=== PATIENT | female | born 1950 | race Caucasian/White ===

== ENCOUNTER 2018-12-07 13:43 | Observation (INO) | payer MEDICARE, SELFPAY ==
[2018-12-07] VITALS (10 sets, daily range): BP systolic 100–167; BP diastolic 59–74; PULSE 61–80; RESP 13–22; TEMP 36.6–36.7; O2SAT 95–99; BMI 25.6; BMI 24.8
--- NOTE | 2018-12-07 14:10 | EKG12_ITS ---
Test Reason : Blood Pressure : / mmHG Vent. Rate : 057 BPM Atrial Rate : 057 BPM P-R Int : 150 ms QRS Dur : 094 ms QT Int : 456 ms P-R-T Axes : 059 026 023 degrees QTc Int : 443 ms Sinus bradycardia with occasional Premature ventricular complexes Otherwise normal ECG Confirmed by BIJAN GAMBINO, DOROTHY ([id number]), index editor LALIT CARDENAS ([id number]) on 12/09/2018 9:13:46 AM Referred By: GEMA Confirmed By:DOROTHY THAKKAR MD
--- NOTE | 2018-12-07 14:10 | RAD_ITS ---
STUDY: X-RAY CHEST REASON FOR EXAM: Female, 68 years old. Syncope. TECHNIQUE: Frontal and lateral views of the chest COMPARISON: 03/25/2015 FINDINGS: The lungs are clear. There are no pleural effusions. There is no pneumothorax. The heart is normal in size. The visualized osseous structures are within normal limits. RAD/Chest PA and Lateral IMPRESSION: No acute thoracic pathology. Electronically Signed: Keanu Dias, at 15:31 EDT Tel , Service support ,
[2018-12-07 14:56] LABS: Absolute Lymphocyte Count 1.39 X10^3/ul (0.83-4.51); Absolute Neutrophil Count 4.3 X10^3/uL (2.0-7.7); Basophil# 0.04 X10^3/uL; Basophil% 0.6 % (0-1); Eosinophil# 0.07 X10^3/uL; Eosinophils% 1.1 % (0-5); Hematocrit 40.4 % (37-47); Hemoglobin 13.5 g/dl (12.0-15.0); Lymphocyte # 1.39 X10^3/ul (4.0); Lymphocyte % 22.2 % (19-41); Mean Corp Hgb Conc 33.4 g/gl (32-36); Mean Corpuscular Volume 83.6 fL (81-99); Monocyte# 0.44 X10^3/uL; Neutrophil % 68.9 % (47-70); Platelet Count 203 K/mm3 (150-450); RBC Distribution Width CV 13.3 % (11.6-14.6); RBC Distribution Width SD 40.4 fl (35.1-43.9); Red Blood Count 4.83 M/mm3 (4.2-5.4); White Blood Count 6.3 K/mm3 (4.4-11.0)
[2018-12-07 14:58] LABS: POSITIVE COUNT NO; POSITIVE DIFFERENTIAL NO; POSITIVE MORPHOLOGY NO
[2018-12-07 15:10] LABS: Anion Gap 5 (5-15); BUN 22 mg/dL (7-18); BUN/Creat Ratio 18.5 RATIO (10-20); Chloride 103 mmol/L (98-107); Creatinine, Serum 1.19 mg/dL (0.55-1.02); EST Glomerular Filtration Rate 48 mL/min (>60); Est Glom Filt Rate - Afr Amer 58 mL/min (>60); Estimated Creatinine Clearance 34.79 ml/min; Glucose 86 mg/dL (74-106); Potassium 3.8 mmol/L (3.5-5.1); Sodium Level 138 mmol/L (136-145)
--- NOTE | 2018-12-07 15:29 | ED.DCSUM_ITS ---
- ER Visit Summary Date of Service: 12/07/18 Chief Complaint: Syncope History of Present Illness: The patient is a 68 F who states that today after lunch she was at work doing her normal job. She states that she suddenly got lightheaded dizzy nauseous and sweaty. She had a discomfort in her epigastrium and lower chest that felt like something dropped. She states that she passed out about 3 times and had vomiting. Patient states that this is been happening over the past month. Prior to this in 2014 the patient had syncope that was felt to be vasovagal mediated but also had ventricular tachycardia on Holter monitor. This led to heart catheterization stress test EP consult and eventually right coronary artery PCI. She has been fine for approximately 4 years. The patient continues to smoke. She states she feels fine now. Physical Examination: Afebrile vital signs are stable Gen: Well-nourished well-developed Head: Normocephalic atraumatic Eyes: Perrl EOMI ENT: TMs clear no rhinorrhea moist mucous membranes Neck: Supple no lymphadenopathy no JVD nontender CVS: Regular rate rhythm no murmurs normal S1-S2 Respiratory: No distress clear to auscultation bilaterally chest nontender Abdomen: Soft nontender nondistended normal bowel sounds no masses Back: Nontender Extremity: Nontender no edema Skin: Normal color no rash Neuro: alert orientated ?3 CN II-XII intact normal strength sensation reflexes gait cerebellar Psych: Normal affect normal mood Test Results: EKG shows a normal sinus rhythm at a rate of 57 with a PVC. CBC BMP and troponin were negative. Emergency Department Course and Treatment: Patient has had no events on the monitor other than PVCs. Because of the patient's history of ventricular tachycardia at this abnormal sensation in her chest would recommend admission for evaluation. Patient agrees with plan. Impression: 1. Syncope This note was generated with [employer] dictation software. It may contain incorrect words, spelling, and punctuation that were not noted in review of the chart prior to signing ED Disposition - Plan for ED Patient: Referrals: Josiah Carlos MD [Primary Care Provider] -
--- NOTE | 2018-12-07 15:55 | NURSING ---
PCU OBS PAINTSIL SYNCOPE
--- NOTE | 2018-12-07 15:57 | HP.PCM_ITS ---
Problem List (1) PVC (premature ventricular contraction) Status: Acute (2) Dyslipidemia Status: Chronic (3) Syncope Status: Acute (4) Benign essential hypertension Status: Chronic History of Present Illness The patient is a 68 year old F [] Past Medical History Past Medical History (Chronic Problems): Chronic Problems Tobacco abuse (Chronic) Smoker (Chronic) 1 ppd Dyslipidemia (Chronic) Benign essential hypertension (Chronic) Allergies tetracycline Allergy (Verified 05/16/15 07:01) Unknown Home Medications: Ambulatory Orders Medication Instructions Recorded Amlodipine [Norvasc] 5 mg PO DAILY 05/06/15 Lisinopril [Zestril] 40 mg PO DAILY 05/06/15 Pravastatin [Pravachol] 20 mg PO DAILY 05/06/15 Aspirin [Aspirin, Baby] 81 mg PO DAILY@0800 05/16/15 Metoprolol Tartrate [Lopressor 25 mg PO BID 05/16/15 (beta yuan)] Nicotine [Nicotine Patch] 1 each TD DAILY 05/16/15 buPROPion SR [Wellbutrin SR (150mg 150 mg PO DAILY 12/07/18 tablets)] Smoking Status: Current every day smoker - *Family History Maternal History Items: Stroke - Physical Exam Vital Signs Temp Pulse Resp BP Pulse Ox 97.8 F 61 17 116/60 99 12/07/18 13:44 12/07/18 15:04 12/07/18 15:04 12/07/18 15:04 12/07/18 15:04 Oxygen Delivery Method Room Air Weight: 63.503 kg Body Mass Index (BMI) 25.6 Laboratory Tests Past 24 Hrs 12/07/18 12/07/18 14:47 14:47 WBC 6.3 RBC 4.83 Hgb 13.5 Hct 40.4 MCV 83.6 MCH 28.0 MCHC 33.4 RDW 13.3 RDW Differential 40.4 Plt Count 203 MPV 10.0 Immature Gran % (Auto) 0.200 Neut % (Auto) 68.9 Lymph % (Auto) 22.2 [place] % (Auto) 7.0 Eos % (Auto) 1.1 Baso % (Auto) 0.6 Absolute Neuts (auto) 4.3 Absolute Lymphs (auto) 1.39 Total Counted Not Reportable Sodium 138 Potassium 3.8 Chloride 103 Carbon Dioxide 30.0 Anion Gap 5 BUN 22 H Creatinine 1.19 H Estim Creat Clear Calc 34.79 Est GFR (MDRD) Af Amer 58 L Est GFR (MDRD) Non-Af 48 L BUN/Creatinine Ratio 18.5 Glucose 86 Calcium 9.0 Troponin I < 0.015 Assessment/Plan All Active Problems PVC (premature ventricular contraction) (Acute) Shortness of breath (Acute) Syncope (Acute) Code Visit OBSV E&M: 78796 Initial observation care L3
--- NOTE | 2018-12-07 16:06 | NURSING ---
PCU RECURRENT SYNCOPE PAINTSIL
--- NOTE | 2018-12-07 16:26 | CASEMGMT ---
RN CM Assessment Introduced role of RN CM to patient and son at bedside.? Patient is alert, oriented and able?to participate in RN CM Assessment. ?Care providers, pharmacy, and demographics verified. Presentation: Lightheaded, dizzy, nausea, sweaty, Epigastric & Lower Chest discomfort, States passed out about 3 times and had vomiting. Admit Dx: Recurrent Syncope Re-Admit: No Barriers/Issues: None PCP: Josiah Carlos Specialists: None Preferred Pharmacy: [facility] Insurance: [facility] Rx Benefit:?Yes LNOK: Dtr Susan Szymanski LW/HPOA: No, Declines offered Information. States her children know already. Living Arrangements:? Lives with her Dtr Susan in a SS Home, 4-5 steps to enter the home. ADL?s: Independent with ambulation and ADL's. Still works [employer]. Transportation: Patient drives, Boyfriend Christiano Morelos to Transport on [place]. DME: None HHC: None SNF: None Goal: Home and back to working. DC PLAN: Home with no anticipated needs identified at this time. AFSANEH Del Angel
--- NOTE | 2018-12-07 17:06 | ECHOD_ITS ---
Reason For Study: Syncope Procedure This was a 2D Doppler, Color Flow transthoracic echocardiogram. Exam performed portable in patient room. Left Ventricle Normal size and thickness. The estimated ejection fraction is 75 %. No regional wall motion abnormalities noted. Right Ventricle Normal size and thickness. Normal systolic function. Atria Normal left atrium. Normal right atrium. Normal atrial septum. Mitral Valve The mitral valve is structurally normal. No prolapse or stenosis seen. Trivial mitral valve insufficiency. Tricuspid Valve Normal tricuspid valve. Mild (1+) tricuspid valve insufficiency. Right ventricular systolic pressure estimated to be 37 mmHg. Mild pulmonary hypertension. Aortic Valve Trisinus/trileaflet aortic valve. Mild focal aortic valve thickening. Trivial aortic valve insufficiency. Pulmonic Valve Normal pulmonic valve. Great Vessels Normal aortic root. Normal arch. Normal inferior vena cava. Inferior vena cava collapse with sniff. Pericardium/Pleural No pericardial effusion. MMode/2D Measurements & Calculations LVIDd: 4.6 cm IVSd: 1.2 cm LVOT diam: 2.0 cm LVIDs: 2.7 cm LVPWd: 1.2 cm LVOT area: 3.1 cm2 RVDd: 2.8 cm FS: 42.2 % ACS: 1.3 cm LAV(MOD-bp): 52.3 ml LA A4 area: 19.5 cm2 LA dimension: 3.3 cm LAV(MOD-bp) Indexed: 32.3 ml/m2 LAV(MOD-sp2): 47.2 ml LAV(MOD-sp4): 56.2 ml RA A4 area: 14.0 cm2 Time Measurements MV dec time: 0.19 sec Doppler Measurements & Calculations MV E max [place]: 84.6 cm/sec Lat Peak E' [place]: 7.6 cm/sec Med Peak E' [place]: 7.3 cm/sec MV A max [place]: 70.2 cm/sec E/E' lat: 11.2 E/E' med: 11.6 MV E/A: 1.2 MV V2 max: 98.9 cm/sec MV P1/2t max [place]in: 98.9 cm/sec Ao V2 max: 266.9 cm/sec MV max P.9 mmHg MV P1/2t: 71.7 msec Ao max P.5 mmHg MV V2 mean: 41.6 cm/sec MV dec slope: 403.7 cm/sec2 Ao V2 mean: 172.6 cm/sec MV mean P.92 mmHg Ao mean P.6 mmHg MV V2 VTI: 31.4 cm MVA(P1/2t): 3.1 cm2 Ao V2 VTI: 61.1 cm MVA(VTI): 2.7 cm2 TANIA(I,D): 1.4 cm2 TANIA(V,D): 1.4 cm2 AI max austin: 472.7 cm/sec LV V1 max: 119.4 cm/sec MR max austin: 543.5 cm/sec AI max P.4 mmHg LV V1 max P.7 mmHg MR max P.2 mmHg LV V1 mean P.0 mmHg MR mean austin: 451.7 cm/sec AI dec slope: 238.4 cm/sec2 LV V1 mean: 81.2 cm/sec MR mean P.3 mmHg AI P1/2t: 580.7 msec LV V1 VTI: 27.3 cm MR VTI: 216.5 cm SV(LVOT): 84.3 ml PA V2 max: 70.2 cm/sec TR max austin: 282.7 cm/sec TR max P.0 mmHg Interpretation Summary The estimated ejection fraction is 75 %. Trivial mitral valve insufficiency. Mild (1+) tricuspid valve insufficiency. Right ventricular systolic pressure estimated to be 37 mmHg. Mild pulmonary hypertension. Trivial aortic valve insufficiency. Compared to echo report dated 05/07/2015, no appreciable changes noted. MR appears to be better on this study. Ordering Physician: Mary Lozano Referring Physician: Josiah Carlos M.D. Performed By: Addi Colindres RCS
--- NOTE | 2018-12-07 17:34 | PCM.HP.STD ---
<Arminda Fournier - Last Filed: 12/07/18 18:08> Problem List (1) Tobacco abuse Status: Chronic (2) PVC (premature ventricular contraction) Status: Chronic (3) Smoker Status: Chronic Comment: 1 ppd (4) Dyslipidemia Status: Chronic (5) Syncope Status: Acute (6) Benign essential hypertension Status: Chronic History of Present Illness Date of Admission: 12/07/18 Chief Complaint: Syncope. The patient is a 68 year old F who presents the emergency room due to syncope. Patient reports over the past month she has had frequent episodes of syncope, a few times per week. She reports today she had multiple episodes which then brought her into the emergency room. She states she has a dark feeling prior to passing out. She has had similar episodes in 2014 where she was admitted and later transferred to [facility] where she had a stent placed. She has not followed up with cardiology since that time and reports she has not had any further issues up until the past month. She has a past medical history of CAD status post PCI to RCA, paroxysmal nonsustained ventricular tachycardia, hypertension, depression/anxiety, tobacco dependence. Past Medical History Past Medical History (Chronic Problems): Chronic Problems Tobacco abuse (Chronic) PVC (premature ventricular contraction) (Chronic) Smoker (Chronic) 1 ppd Dyslipidemia (Chronic) Benign essential hypertension (Chronic) Allergies tetracycline Allergy (Verified 05/16/15 07:01) Unknown Home Medications: Ambulatory Orders Medication Instructions Recorded Aspirin [Aspirin, Baby] 81 mg PO DAILY@0800 05/16/15 Metoprolol Tartrate [Lopressor 25 mg PO BID 05/16/15 (beta yuan)] Amlodipine Besylate 10 mg PO DAILY 12/07/18 Lisinopril 40 mg PO DAILY 12/07/18 buPROPion SR [Wellbutrin SR (150mg 150 mg PO DAILY 12/07/18 tablets)] hydroCHLOROthiazide 12.5 mg PO DAILY 12/07/18 [Hydrochlorothiazide] Surgical History: appendectomy, - - Tubal ligation, complete hysterectomy, bladder reconstruction, right breast cyst removal Psychiatric History: No pertinent psych hx COMMUNITY HEALTH EDUCATOR History: No pertinent COMMUNITY HEALTH EDUCATOR history Smoking Status: Current every day smoker Tobacco Use: Cigarettes Alcohol: None Drugs: None - *Family History Maternal History Items: - - from MVA. Paternal History Items: - - Bladder cancer. Review of Systems Constitutional: Denies: Chills, Fever, Weight Change HEENT: Denies: Head Aches, Sinus Congestion, Sinus Drainage Cardiovascular: Reports: Syncope. Denies: Chest Pain, Edema, Palpitations Respiratory: Denies: Cough, Shortness of breath at rest, Sputum production Gastrointestinal: Denies: Abdominal Pain, Nausea, Vomiting Genitourinary: Denies: Dysuria Musculoskeletal: Denies: Joint Pain, Joint Tenderness Skin: Denies: Rash, Wounds Neurological: Denies: Numbness, Tingling, Focal weakness Psychiatric: Denies: Anxiety, Depression, Homicidal Ideations, Suicidal Ideations Hematologic/ Lymphatic: Denies: Easy Bruising, Easy Bleeding VTE Information - Inpt Only VTE Present on Admission: No VTE Mechan Device Prophylaxis: None VTE Pharm Prophylaxis ordered?: Yes - Physical Exam General: Alert, Oriented x3, Cooperative HEENT: Atraumatic, PERRLA, EOMI, Normocephalic Neck: Supple, No JVD, Negative Carotid Bruits Lungs: Clear to auscultation, Normal air movement Cardiovascular: Regular rate, Regular Rhythm, Normal S1, Normal S2, No murmurs Abdomen: Bowel Sounds Present, Soft, Non Tender, Non-Distended Extremities: No clubbing, No cyanosis, No edema, Capillary Refill Less than 3 Seconds Skin: No rashes, No breakdown Musculoskeletal: No Tenderness to Palpation of Joints or Extremities Neurological: Cranial nerves II-XII grossly intact, Neuro grossly intact Psych/Mental Status: Normal Affect, Appropriate Vital Signs Temp Pulse Resp BP Pulse Ox 98.1 F 63 22 H 143/73 H 96 12/07/18 17:02 12/07/18 17:31 12/07/18 17:02 12/07/18 17:31 12/07/18 17:02 Oxygen Delivery Method Room Air Weight: 135 lb 12.8 oz Body Mass Index (BMI) 24.8 Orthostatic Vital Signs Start: 12/07/18 17:31 Freq: q24h Status: Active Protocol: Activity Type Activity Date Activity User E-Sign Co-Sign Detail Recorded Client Recorded Date Recorded By Document 12/07/18 17:31 NEIL [id number] 12/07/18 17:34 NEIL 12/07/18 17:31 Orthostatic Vitals Standing -Blood Pressure (90/60-120/80) 128/62 H -Extremity Use Left Arm -Pulse Rate (60-100) 74 Sitting -Blood Pressure (90/60-120/80) 131/68 H -Extremity Use Left Arm -Pulse Rate (60-100) 67 Lying -Blood Pressure (90/60-120/80) 143/73 H -Pulse Rate (60-100) 63 Laboratory Tests Past 24 Hrs 12/07/18 12/07/18 14:47 14:47 WBC 6.3 RBC 4.83 Hgb 13.5 Hct 40.4 MCV 83.6 MCH 28.0 MCHC 33.4 RDW 13.3 RDW Differential 40.4 Plt Count 203 MPV 10.0 Immature Gran % (Auto) 0.200 Neut % (Auto) 68.9 Lymph % (Auto) 22.2 [place] % (Auto) 7.0 Eos % (Auto) 1.1 Baso % (Auto) 0.6 Absolute Neuts (auto) 4.3 Absolute Lymphs (auto) 1.39 Total Counted Not Reportable Sodium 138 Potassium 3.8 Chloride 103 Carbon Dioxide 30.0 Anion Gap 5 BUN 22 H Creatinine 1.19 H Estim Creat Clear Calc 34.79 Est GFR (MDRD) Af Amer 58 L Est GFR (MDRD) Non-Af 48 L BUN/Creatinine Ratio 18.5 Glucose 86 Calcium 9.0 Troponin I < 0.015 Assessment/Plan All Active Problems Syncope (Acute) 1. Recurrent syncope-history of arrhythmia/CAD. Cardiology consulted. EKG on admission with PVCs. Trend enzymes. Obtain echocardiogram. 2. Orthostatic hypotension, suspect secondary to hypovolemia mild elevated creatinine,-IV fluids, repeat in a.m. 3. CAD status post PCI to RCA-continue aspirin, metoprolol. 4. History of paroxysmal nonsustained ventricular tachycardia-monitor telemetry. 5. Hypertension-stable, continue amlodipine, HCTZ, lisinopril, metoprolol. 6. Depression/anxiety-continue Wellbutrin regimen. 7. Tobacco dependence-encouraged smoking cessation. Nicotine replacement patch. DVT prophylaxis-Lovenox subcu This patient was seen by KHANG Sanz under the supervision of Dr. Lozano. <Mary Lozano - Last Filed: 12/07/18 19:19> Problem List (1) PVC (premature ventricular contraction) Status: Chronic (2) Dyslipidemia Status: Chronic (3) Syncope Status: Acute (4) Benign essential hypertension Status: Chronic History of Present Illness The patient is a 68 year old F [] Past Medical History Allergies tetracycline Allergy (Verified 05/16/15 07:01) Unknown - Physical Exam Vital Signs Temp Pulse Resp BP Pulse Ox 98.1 F 63 22 H 143/73 H 96 12/07/18 17:02 12/07/18 17:31 12/07/18 17:02 12/07/18 17:31 12/07/18 17:02 Oxygen Delivery Method Room Air Weight: 61.598 kg Body Mass Index (BMI) 24.8 Orthostatic Vital Signs Start: 12/07/18 17:31 Freq: q24h Status: Active Protocol: Activity Type Activity Date Activity User E-Sign Co-Sign Detail Recorded Client Recorded Date Recorded By Document 12/07/18 17:31 B [id number] 12/07/18 17:34 ZZB 12/07/18 17:31 Orthostatic Vitals Standing -Blood Pressure (90/60-120/80) 128/62 H -Extremity Use Left Arm -Pulse Rate (60-100) 74 Sitting -Blood Pressure (90/60-120/80) 131/68 H -Extremity Use Left Arm -Pulse Rate (60-100) 67 Lying -Blood Pressure (90/60-120/80) 143/73 H -Pulse Rate (60-100) 63 Intake and Output for Last 24 Hours 12/05/18 12/06/18 12/07/18 23:59 23:59 23:59 Intake Total 240 / 240 Balance 240 / 240 Laboratory Tests Past 24 Hrs 12/07/18 12/07/18 12/07/18 14:47 14:47 17:55 WBC 6.3 RBC 4.83 Hgb 13.5 Hct 40.4 MCV 83.6 MCH 28.0 MCHC 33.4 RDW 13.3 RDW Differential 40.4 Plt Count 203 MPV 10.0 Immature Gran % (Auto) 0.200 Neut % (Auto) 68.9 Lymph % (Auto) 22.2 [place] % (Auto) 7.0 Eos % (Auto) 1.1 Baso % (Auto) 0.6 Absolute Neuts (auto) 4.3 Absolute Lymphs (auto) 1.39 Total Counted Not Reportable Sodium 138 Potassium 3.8 Chloride 103 Carbon Dioxide 30.0 Anion Gap 5 BUN 22 H Creatinine 1.19 H Estim Creat Clear Calc 34.79 Est GFR (MDRD) Af Amer 58 L Est GFR (MDRD) Non-Af 48 L BUN/Creatinine Ratio 18.5 Glucose 86 Calcium 9.0 Troponin I < 0.015 < 0.015 Assessment/Plan This patient was seen in conjunction with Arminda Fournier NP. I have independently interviewed and examined the patient and reviewed pertinent historical, laboratory, and other data. Please refer to her note for patient's presentation, findings, and recommendations. 68-year-old female with past medical history of CAD status post stent, history of arrhythmias(ventricular tachycardia), last saw Dr. Coley in 2014. Patient states that she was referred to [facility] and subsequently got a stent and since then did not get any symptoms and stopped to follow-up with Dr. Coley.Patient admits to having recurrent feeling of passing out ongoing every week for the past 1 month. She works at [employer] and was sitting down helping to sort out when she was said to have passed out. She woke up with a few seconds later. Denied any chest pain or dizziness or palpitations or incontinence of urine or stool or biting of tongue. ROS essentially negative except for HPI PMHx: As above in HPI PSHx: History of tubal ligation, complete hysterectomy, bladder reconstruction, right breast cyst removal FHX: Badder cancer in his father SHX: Smoker, smokes about 1 pack of cigarettes a day, eyes any use of alcohol or illicit drugs Vitals are stable -orthostatic vitals positive Physical Exam: Gen: Appears comfortable not pale, not jaundiced, alert oriented x3 CVS:HS I +II, regular, no murmurs RESP: Color clear to auscultation GI: Bowel sounds present and normal, soft, nontender, no palpable organs EXT:No edema LABS: CBC is unremarkable, BMP shows slight elevation in BUN and creatinine, troponins x2 is negative, EKG shows normal sinus rhythm, occasional PVCs ASSESSMENT: 1. Recurrent syncope likely secondary to arrhythmias/orthostatic hypotension 2. CAD status post stent -2 records from [facility] 3. Orthostatic hypotension secondary to dehydration 4. History of paroxysmal nonsustained V. tach 5. Hypertension, controlled 6. Anxiety/depression 7. Nicotine dependence Meds reviewed Plan: We will continue to monitor on telemetry 2D echo Check magnesium Cardiology consult Code Visit Inpatient E&M: 10915 Init Hosp L3
--- NOTE | 2018-12-07 17:39 | HP.PCM_ITS ---
<Arminda Fournier - Last Filed: 12/07/18 18:08> Problem List (1) Tobacco abuse Status: Chronic (2) PVC (premature ventricular contraction) Status: Chronic (3) Smoker Status: Chronic Comment: 1 ppd (4) Dyslipidemia Status: Chronic (5) Syncope Status: Acute (6) Benign essential hypertension Status: Chronic History of Present Illness Date of Admission: 12/07/18 Chief Complaint: Syncope. The patient is a 68 year old F who presents the emergency room due to syncope. Patient reports over the past month she has had frequent episodes of syncope, a few times per week. She reports today she had multiple episodes which then brought her into the emergency room. She states she has a dark feeling prior to passing out. She has had similar episodes in 2014 where she was admitted and later transferred to [facility] where she had a stent placed. She has not followed up with cardiology since that time and reports she has not had any further issues up until the past month. She has a past medical history of CAD status post PCI to RCA, paroxysmal nonsustained ventricular tachycardia, hypertension, depression/anxiety, tobacco dependence. Past Medical History Past Medical History (Chronic Problems): Chronic Problems Tobacco abuse (Chronic) PVC (premature ventricular contraction) (Chronic) Smoker (Chronic) 1 ppd Dyslipidemia (Chronic) Benign essential hypertension (Chronic) Allergies tetracycline Allergy (Verified 05/16/15 07:01) Unknown Home Medications: Ambulatory Orders Medication Instructions Recorded Aspirin [Aspirin, Baby] 81 mg PO DAILY@0800 05/16/15 Metoprolol Tartrate [Lopressor 25 mg PO BID 05/16/15 (beta yuan)] Amlodipine Besylate 10 mg PO DAILY 12/07/18 Lisinopril 40 mg PO DAILY 12/07/18 buPROPion SR [Wellbutrin SR (150mg 150 mg PO DAILY 12/07/18 tablets)] hydroCHLOROthiazide 12.5 mg PO DAILY 12/07/18 [Hydrochlorothiazide] Surgical History: appendectomy, - - Tubal ligation, complete hysterectomy, bladder reconstruction, right breast cyst removal Psychiatric History: No pertinent psych hx 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 Paternal History Items: - - Bladder cancer. Review of Systems Constitutional: Denies: Chills, Fever, Weight Change HEENT: Denies: Head Aches, Sinus Congestion, Sinus Drainage Cardiovascular: Reports: Syncope. Denies: Chest Pain, Edema, Palpitations Respiratory: Denies: Cough, Shortness of breath at rest, Sputum production Gastrointestinal: Denies: Abdominal Pain, Nausea, Vomiting Genitourinary: Denies: Dysuria Musculoskeletal: Denies: Joint Pain, Joint Tenderness Skin: Denies: Rash, Wounds Neurological: Denies: Numbness, Tingling, Focal weakness Psychiatric: Denies: Anxiety, Depression, Homicidal Ideations, Suicidal Ideations Hematologic/ Lymphatic: Denies: Easy Bruising, Easy Bleeding VTE Information - Inpt Only VTE Present on Admission: No VTE Mechan Device Prophylaxis: None VTE Pharm Prophylaxis ordered?: Yes - Physical Exam General: Alert, Oriented x3, Cooperative HEENT: Atraumatic, PERRLA, EOMI, Normocephalic Neck: Supple, No JVD, Negative Carotid Bruits Lungs: Clear to auscultation, Normal air movement Cardiovascular: Regular rate, Regular Rhythm, Normal S1, Normal S2, No murmurs Abdomen: Bowel Sounds Present, Soft, Non Tender, Non-Distended Extremities: No clubbing, No cyanosis, No edema, Capillary Refill Less than 3 Seconds Skin: No rashes, No breakdown Musculoskeletal: No Tenderness to Palpation of Joints or Extremities Neurological: Cranial nerves II-XII grossly intact, Neuro grossly intact Psych/Mental Status: Normal Affect, Appropriate Vital Signs Temp Pulse Resp BP Pulse Ox 98.1 F 63 22 H 143/73 H 96 12/07/18 17:02 12/07/18 17:31 12/07/18 17:02 12/07/18 17:31 12/07/18 17:02 Oxygen Delivery Method Room Air Weight: 135 lb 12.8 oz Body Mass Index (BMI) 24.8 Orthostatic Vital Signs Start: 12/07/18 17:31 Freq: q24h Status: Active Protocol: Activity Type Activity Date Activity User E-Sign Co-Sign Detail Recorded Client Recorded Date Recorded By Document 12/07/18 17:31 NEIL [id number] 12/07/18 17:34 NEIL 12/07/18 17:31 Orthostatic Vitals Standing -Blood Pressure (90/60-120/80) 128/62 H -Extremity Use Left Arm -Pulse Rate (60-100) 74 Sitting -Blood Pressure (90/60-120/80) 131/68 H -Extremity Use Left Arm -Pulse Rate (60-100) 67 Lying -Blood Pressure (90/60-120/80) 143/73 H -Pulse Rate (60-100) 63 Laboratory Tests Past 24 Hrs 12/07/18 12/07/18 14:47 14:47 WBC 6.3 RBC 4.83 Hgb 13.5 Hct 40.4 MCV 83.6 MCH 28.0 MCHC 33.4 RDW 13.3 RDW Differential 40.4 Plt Count 203 MPV 10.0 Immature Gran % (Auto) 0.200 Neut % (Auto) 68.9 Lymph % (Auto) 22.2 [place] % (Auto) 7.0 Eos % (Auto) 1.1 Baso % (Auto) 0.6 Absolute Neuts (auto) 4.3 Absolute Lymphs (auto) 1.39 Total Counted Not Reportable Sodium 138 Potassium 3.8 Chloride 103 Carbon Dioxide 30.0 Anion Gap 5 BUN 22 H Creatinine 1.19 H Estim Creat Clear Calc 34.79 Est GFR (MDRD) Af Amer 58 L Est GFR (MDRD) Non-Af 48 L BUN/Creatinine Ratio 18.5 Glucose 86 Calcium 9.0 Troponin I < 0.015 Assessment/Plan All Active Problems Syncope (Acute) 1. Recurrent syncope-history of arrhythmia/CAD. Cardiology consulted. EKG on admission with PVCs. Trend enzymes. Obtain echocardiogram. 2. Orthostatic hypotension, suspect secondary to hypovolemia mild elevated creatinine,-IV fluids, repeat in a.m. 3. CAD status post PCI to RCA-continue aspirin, metoprolol. 4. History of paroxysmal nonsustained ventricular tachycardia-monitor telemetry. 5. Hypertension-stable, continue amlodipine, HCTZ, lisinopril, metoprolol. 6. Depression/anxiety-continue Wellbutrin regimen. 7. Tobacco dependence-encouraged smoking cessation. Nicotine replacement patch. DVT prophylaxis-Lovenox subcu This patient was seen by KHANG Sanz under the supervision of Dr. Lozano. <Mary Lozano - Last Filed: 12/07/18 19:19> Problem List (1) PVC (premature ventricular contraction) Status: Chronic (2) Dyslipidemia Status: Chronic (3) Syncope Status: Acute (4) Benign essential hypertension Status: Chronic History of Present Illness The patient is a 68 year old F [] Past Medical History Allergies tetracycline Allergy (Verified 05/16/15 07:01) Unknown - Physical Exam Vital Signs Temp Pulse Resp BP Pulse Ox 98.1 F 63 22 H 143/73 H 96 12/07/18 17:02 12/07/18 17:31 12/07/18 17:02 12/07/18 17:31 12/07/18 17:02 Oxygen Delivery Method Room Air Weight: 61.598 kg Body Mass Index (BMI) 24.8 Orthostatic Vital Signs Start: 12/07/18 17:31 Freq: q24h Status: Active Protocol: Activity Type Activity Date Activity User E-Sign Co-Sign Detail Recorded Client Recorded Date Recorded By Document 12/07/18 17:31 B [id number] 12/07/18 17:34 ZZB 12/07/18 17:31 Orthostatic Vitals Standing -Blood Pressure (90/60-120/80) 128/62 H -Extremity Use Left Arm -Pulse Rate (60-100) 74 Sitting -Blood Pressure (90/60-120/80) 131/68 H -Extremity Use Left Arm -Pulse Rate (60-100) 67 Lying -Blood Pressure (90/60-120/80) 143/73 H -Pulse Rate (60-100) 63 Intake and Output for Last 24 Hours 12/05/18 12/06/18 12/07/18 23:59 23:59 23:59 Intake Total 240 / 240 Balance 240 / 240 Laboratory Tests Past 24 Hrs 12/07/18 12/07/18 12/07/18 14:47 14:47 17:55 WBC 6.3 RBC 4.83 Hgb 13.5 Hct 40.4 MCV 83.6 MCH 28.0 MCHC 33.4 RDW 13.3 RDW Differential 40.4 Plt Count 203 MPV 10.0 Immature Gran % (Auto) 0.200 Neut % (Auto) 68.9 Lymph % (Auto) 22.2 [place] % (Auto) 7.0 Eos % (Auto) 1.1 Baso % (Auto) 0.6 Absolute Neuts (auto) 4.3 Absolute Lymphs (auto) 1.39 Total Counted Not Reportable Sodium 138 Potassium 3.8 Chloride 103 Carbon Dioxide 30.0 Anion Gap 5 BUN 22 H Creatinine 1.19 H Estim Creat Clear Calc 34.79 Est GFR (MDRD) Af Amer 58 L Est GFR (MDRD) Non-Af 48 L BUN/Creatinine Ratio 18.5 Glucose 86 Calcium 9.0 Troponin I < 0.015 < 0.015 Assessment/Plan This patient was seen in conjunction with Arminda Fournier NP. I have independently interviewed and examined the patient and reviewed pertinent historical, laboratory, and other data. Please refer to her note for patient's presentation, findings, and recommendations. 68-year-old female with past medical history of CAD status post stent, history of arrhythmias(ventricular tachycardia), last saw Dr. Coley in 2014. Patie nt states that she was referred to [facility] and subsequently got a stent and since then did not get any symptoms and stopped to follow-up with Dr. Coley.Patient admits to having recurrent feeling of passing out ongoing every week for the past 1 month. She works at [employer] and was sitting down helping to sort out when she was said to have passed out. She woke up with a few seconds later. Denied any chest pain or dizziness or palpitations or incontinence of urine or stool or biting of tongue. ROS essentially negative except for HPI PMHx: As above in HPI PSHx: History of tubal ligation, complete hysterectomy, bladder reconstruction, right breast cyst removal FHX: Badder cancer in his father SHX: Smoker, smokes about 1 pack of cigarettes a day, eyes any use of alcohol or illicit drugs Vitals are stable -orthostatic vitals positive Physical Exam: Gen: Appears comfortable not pale, not jaundiced, alert oriented x3 CVS:HS I +II, regular, no murmurs RESP: Color clear to auscultation GI: Bowel sounds present and normal, soft, nontender, no palpable organs EXT:No edema LABS: CBC is unremarkable, BMP shows slight elevation in BUN and creatinine, troponins x2 is negative, EKG shows normal sinus rhythm, occasional PVCs ASSESSMENT: 1. Recurrent syncope likely secondary to arrhythmias/orthostatic hypotension 2. CAD status post stent -[address] [facility] 3. Orthostatic hypotension secondary to dehydration 4. History of paroxysmal nonsustained V. tach 5. Hypertension, controlled 6. Anxiety/depression 7. Nicotine dependence Meds reviewed Plan: We will continue to monitor on telemetry 2D echo Check magnesium Cardiology consult Code Visit Inpatient E&M: [id number] Init Hosp L3
[2018-12-07] MEDS: 0.9% Normal Saline 1,000 ML 125 ML IV (18:49)
[2018-12-07 21:19] LABS: Magnesium 2.2 mg/dL (1.6-2.6)
--- NOTE | 2018-12-07 21:24 | PCM.CONS.C ---
Problem List (1) Syncope Status: Acute (2) PVC (premature ventricular contraction) Status: Chronic (3) CAD (coronary artery disease) Status: Chronic Qualifiers: Coronary Disease-Associated Artery/Lesion type: [place] artery [place]lim [place] vs. transplanted heart: [place] heart Associated angina: without angina Qualified Code(s): I25.10 - Atherosclerotic heart disease of [place] coronary artery without angina pectoris (4) S/P PTCA (percutaneous transluminal coronary angioplasty) Status: Chronic (5) Dyslipidemia Status: Chronic (6) Benign essential hypertension Status: Chronic Reason for Consult Date of Consultation: 12/07/18 History of Present Illness: The patient is a 68 year old white female with a past medical history of near syncope/syncope, ventricular ectopy with PVCs and nonsustained VT, CAD, status post RCA PTCA/JOSÉ MIGUEL, dyslipidemia, and hypertension who presents for evaluation of recurrent near syncope/syncope. She states greater than a month ago she was placed on additional medical therapy with HCTZ based on concerns of lower extremity edema. She does not recall her blood pressure being elevated at the time. She notes over the last month she has had episodes where she has not felt well, felt as if everything dropped out , and she was going to lose consciousness or nearly lost consciousness. She notes that these episodes have been happening weekly and were worse today. She also notes during this timeframe her blood pressure has been lower than usual. During this timeframe she does not recall having any resting or exertional chest discomfort. There is been no episodes of worsening shortness of breath or dyspnea. She notes occasional flutter feeling in her chest. She has had no obvious ongoing lower extremity peripheral pitting edema. She presented to the hospital this day based on the aforementioned concerns. Status post evaluation by internal medicine she was found to have orthostatic positive blood pressures. She was placed in the PCU where she has been receiving IV fluids. She has a history of undergoing cardiovascular evaluation in the past. This evaluation has included noninvasive and invasive studies. On 05/07/2015 she had a transthoracic echocardiogram performed. The left ventricle was normal with an LVEF of 70% with mild concentric LVH with a sigmoid septum with borderline to mild left atrial enlargement and mild diffuse mitral valve thickening with mild to moderate MR and mild TR as well as aortic valve sclerosis/mild aortic valve stenosis with mild AI and an estimated RV systolic pressure of 30 mmHg. She had decreased diastolic compliance. On 05/07/2015 she had a exercise tolerance test/imaging study performed in the way of a pharmacologic stress nuclear imaging study. She had normal myocardial perfusion at that time. She is also undergone previous evaluation on 05/16/2015 based upon recurrent concerns with a diagnostic cardiac catheterization. Based upon the report the left ventricle was normal with an LVEF of 70%, the left main coronary artery had 10-25% stenosis, the LAD had proximal minimal luminal irregularities, the LCx was a small to moderate nondominant vessel with proximal minimal luminal irregularities, the RCA was a large dominant vessel with proximal 25% eccentric appearing stenosis with mid 75% eccentric appearing stenosis followed by 50% eccentric appearing stenosis, and the mitral valve had mild MR which was partially catheter/PVC induced. She subsequently underwent further evaluation and care in [facility]. There she subsequently received RCA PTCA/JOSÉ MIGUEL. She has also had ambulatory monitoring performed in the past. Based upon report from 06/07/2015 she had a 30-day event monitor which demonstrated sinus bradycardia arrhythmia with no PACs, PVCs, a 9 beat episode appearing compatible with ventricular tachycardia, and no symptoms. It has been noted that while at [facility] she was evaluated by EP in consultation. Other than her noninvasive studies performed and her subsequent evaluation care for coronary artery disease, and medical management, no further EP evaluation was recommended at that time. In March 2017 the patient had a 24-hour Holter monitor performed. At that time she was in sinus rhythm with rare PVCs no ventricular runs and rare PACs with one 5 beat atrial run appearing compatible with an ectopic atrial tachycardia. No symptoms were reported. Her last outpatient cardiovascular follow-up visit appears to been in March 2017. She states she was feeling well and did not return for additional evaluation or care. She states she has been following with her primary care physician. She has been undergoing cardiac enzymes which have been negative. Her cardiac telemetry has demonstrated sinus rhythm with occasional PVCs. Her ECG demonstrated sinus bradycardia with occasional PVCs. Her chest x-ray demonstrated no acute findings. [] Past Medical History Allergies/Adverse Reactions: Allergies tetracycline Allergy (Verified 05/16/15 07:01) Unknown Home Medications: Ambulatory Orders Medication Instructions Recorded Aspirin [Aspirin, Baby] 81 mg PO DAILY@0800 05/16/15 Metoprolol Tartrate [Lopressor 25 mg PO BID 05/16/15 (beta yuan)] Amlodipine Besylate 10 mg PO DAILY 12/07/18 Lisinopril 40 mg PO DAILY 12/07/18 buPROPion SR [Wellbutrin SR (150mg 150 mg PO DAILY 12/07/18 tablets)] hydroCHLOROthiazide 12.5 mg PO DAILY 12/07/18 [Hydrochlorothiazide] Past Medical History (Chronic Problems): Chronic Problems CAD (coronary artery disease) (Chronic) S/P PTCA (percutaneous transluminal coronary angioplasty) (Chronic) Tobacco abuse (Chronic) PVC (premature ventricular contraction) (Chronic) Smoker (Chronic) 1 ppd Dyslipidemia (Chronic) Benign essential hypertension (Chronic) Surgical History: angioplasty, appendectomy, - - Tubal ligation, complete hysterectomy, bladder reconstruction, right breast cyst removal Psychiatric History: No pertinent psych hx 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 Maternal History Items: - - from MVA. Lives: Spouse/ Significant Other Smoking Status: Current every day smoker Tobacco Use: Cigarettes Alcohol: None Drugs: None Review of Systems - Review of Systems General: Denies: Fever, Night Sweats, Fatigue Cardiovascular: Reports: Near Syncope, Syncope. Denies: Chest Discomfort, Shortness of Breath, Orthopnea, PND, Peripheral Edema, Palpitations, Lightheadedness, Dizziness Respiratory: Denies: Cough, Sputum Production, Hemoptysis Gastrointestinal: Denies: Hematemesis, Hematochezia, Melena Genitourinary: Denies: Dysuria, Hematuria Skin: Denies: Rash Subjectve: This is a 68-year-old white female who appears to be resting comfortably at the moment in no acute distress. Objective: Vital Signs Temp Pulse Resp BP Pulse Ox 98.1 F 80 22 H 143/73 H 96 12/07/18 17:02 12/07/18 19:06 12/07/18 17:02 12/07/18 17:31 12/07/18 17:02 Oxygen Delivery Method Room Air Weight: 135 lb 12.8 oz Body Mass Index (BMI) 24.8 Orthostatic Vital Signs Start: 12/07/18 17:31 Freq: q24h Status: Active Protocol: Activity Type Activity Date Activity User E-Sign Co-Sign Detail Recorded Client Recorded Date Recorded By Document 12/07/18 17:31 NEIL [id number] 12/07/18 17:34 ZZB 12/07/18 17:31 Orthostatic Vitals Standing -Blood Pressure (90/60-120/80 mm Hg) 128/62 H -Extremity Use Left Arm -Pulse Rate (60-100 beats/min) 74 Sitting -Blood Pressure (90/60-120/80 mm Hg) 131/68 H -Extremity Use Left Arm -Pulse Rate (60-100 beats/min) 67 Lying -Blood Pressure (90/60-120/80 mm Hg) 143/73 H -Pulse Rate (60-100 beats/min) 63 Intake and Output for Last 24 Hours 12/05/18 12/06/18 12/07/18 23:59 23:59 23:59 Intake Total 240 / 240 Balance 240 / 240 General: Awake, Alert, Oriented x 3, Cooperative, No Acute Distress HEENT: Atraumatic, Normocephalic, PERRL, EOMI, Sclera Non Icteric Oral: Moist Mucosa Neck: Supple, Good ROM, No JVD Lungs: Clear to auscultation Cardiovascular: Regular Rhythm, Normal S1, Normal S2 Murmur Murmur: Grade 2/6, Harsh, Mid Systolic, LLSB, LVOT, Sternal Notch Vascular: L Carotid Artery Bruits Abdomen: Bowel Sounds Present, Soft, Non Tender Extremities: No Cyanosis, No Clubbing, No edema Neurological: No Focal Motor or Sensory Deficit Psych/Mental Status: Appropriate 12/07/18 14:47: WBC 6.3, RBC 4.83, Hgb 13.5, Hct 40.4, MCV 83.6, MCH 28.0, MCHC 33.4, RDW 13.3, RDW Differential 40.4, Plt Count 203, MPV 10.0, Immature Gran % (Auto) 0.200, Neut % (Auto) 68.9, Lymph % (Auto) 22.2, [place] % (Auto) 7.0, Eos % (Auto) 1.1, Baso % (Auto) 0.6, Absolute Neuts (auto) 4.3, Total Counted Not Reportable 12/07/18 14:47: Sodium 138, Potassium 3.8, Chloride 103, Carbon Dioxide 30.0, Anion Gap 5, BUN 22 H, Creatinine 1.19 H, Est GFR (MDRD) Af Amer 58 L, Est GFR (MDRD) Non-Af 48 L, BUN/Creatinine Ratio 18.5, Glucose 86, Calcium 9.0, Troponin I < 0.015 12/07/18 17:55: Troponin I < 0.015 12/07/18 20:48: Magnesium 2.2, Troponin I < 0.015 Rhythm: Sinus rhythm; occasional PVCs EKG: As noted above ECHO: As noted above Stress Test: As noted above Cardiac Cath: As noted above PCI: As noted above CXR: As noted above Assessment/Plan 1. Near syncope/syncope The patient has had recurrent episodes of near syncope/syncope. The etiology is unclear. The patient does have underlying cardiovascular disease as previously noted with a history of CAD status post RCA PTCA/stent as well as underlying ventricular ectopy with PVCs and brief episodes of nonsustained wide-complex tachycardia thought compatible with nonsustained VT. Thus she will need to continue to need to be evaluated for concerns of any ongoing coronary artery disease related issues with respect to cardiac enzymes and ECG follow-up. It would not be unreasonable to reassess her with a pharmacologic stress nuclear imaging study to evaluate for any obvious ongoing myocardial ischemia that could contribute to ischemic mediated issues such as dysrhythmias it would contribute to her clinical events. The same time her cardiac rhythm is being monitored. She is already known to have underlying ventricular ectopy. She will need to be followed for any obvious additional changes to warrant additional evaluation and care. As part of this evaluation she will also have an echocardiogram performed to evaluate her left ventricular wall motion and systolic function for any obvious changes especially declined that would contribute to her findings. She also appears to have a left carotid artery bruit. It may be reasonable to perform a carotid artery duplex study to look for any hemodynamically significant peripheral arterial occlusive disease that may be contributing to her clinical events. There is concerned that her recent addition of an HCTZ type diuretic may have contributed to decreased intravascular volume and dehydration bringing out her symptoms. This may have contributed to her orthostatic positive blood pressures. She is being treated with IV fluids. 2. PVCs Again she has underlying ventricular ectopy. She will need continued evaluation and care as noted above. 3. CAD status post RCA PTCA/stent She should continue risk factor evaluation and care. In the interim she will continue to be followed with cardiac enzymes and ECG. She will proceed with her noninvasive studies as noted above. She will continue medical management as deemed appropriate. 4. Dyslipidemia The patient's lipids will be reassessed. However based upon her history of underlying CAD she should be considered for lipid-lowering therapy. 5. Hypertension The patient's blood pressure will be monitored. She will continue medical management with adjustment as needed. However, if it is felt over time that her diuretic therapy contributed to her orthostatic changes and current symptoms then she will need continued consideration for nondiuretic antihypertensive therapy. Comment: The above was discussed with the patient, her family members present, and Dr. Jose. This note was generated with [employer] software. It may contain incorrect words, spelling, and punctuation that were not noted in checking the note before signing.
--- NOTE | 2018-12-07 21:38 | CDU_ITS ---
Reason For Study: Syncope Rt. Velocities/BP Lt. Velocities/BP Prox CCA 86/15 cm/sec. Prox CCA 104/19 cm/sec. Mid CCA 101/20 cm/sec. Mid CCA 86/19 cm/sec. Dist CCA 83/18 cm/sec. Dist CCA 93/24 cm/sec. Prox ICA 57/16 cm/sec. Prox ICA 205/50 cm/sec. Mid ICA 76/25 cm/sec. Mid ICA 150/37 cm/sec. Dist ICA 105/29 cm/sec. Dist ICA 115/30 cm/sec. Rt. ICA/CCA = 1.0. Lt. ICA/CCA = 2.38. Prox ECA 95/12 cm/sec. Prox ECA 120/12 cm/sec. Rt. Vert. 88/24 cm/sec. Lt. Vert. 81/25 cm/sec. Right Extracranial There is homogeneous, smooth atherosclerotic plaque noted in the right common carotid artery. There is heterogeneous, irregular atherosclerotic plaque noted in the right internal carotid artery. There is intimal thickening but no significant atherosclerotic plaque noted in the right external carotid artery. Antegrade flow is noted in the right vertebral artery. Left Extracranial There is heterogeneous, irregular atherosclerotic plaque noted in the left common carotid artery. There is heterogeneous, irregular atherosclerotic plaque noted in the left internal carotid artery. There is heterogeneous, irregular atherosclerotic plaque noted in the left external carotid artery. Antegrade flow is noted in the left vertebral artery. Procedure Carotid Duplex [id number]. Exam performed portable in patient room. Interpretation Summary Minimal irregular plague at the proximal right internal carotid with <50% stenosis. <50% stenosis right external carotid Irregular calcific plague at the proximal left internal carotid [id number]% stenosis. Irregular plague at the proximal left external carotid with <50% stenosis. Patent and antegrade vertebrals bilaterally Ordering Physician: Alexandre Coley Referring Physician: Josiah Carlos Performed By: Mary Smith, ANA, RVT
[2018-12-07] MEDS: Metoprolol Tartrate 25 MG Tablet PO (21:53)
[2018-12-08] VITALS (10 sets, daily range): BP systolic 128–147; BP diastolic 55–72; PULSE 59–66; RESP 11–18; TEMP 36.6–37; O2SAT 95–99
[2018-12-08] MEDS: 0.9% Normal Saline 1,000 ML 125 ML IV (02:55)
[2018-12-08 05:18] LABS: Basophil# 0.02 X10^3/uL; Basophil% 0.6 % (0-1); Eosinophil# 0.05 X10^3/uL; Eosinophils% 1.5 % (0-5); Hematocrit 37.5 % (37-47); Hemoglobin 12.6 g/dl (12.0-15.0); Lymphocyte % 32.3 % (19-41); Mean Corp Hgb Conc 33.6 g/gl (32-36); Mean Corpuscular Hgb 27.8 pg (27.0-32.0); Mean Corpuscular Volume 82.8 fL (81-99); Mean Platelet Vol. 10.5 fl (6.2-12.0); Monocyte# 0.25 X10^3/uL; Monocyte% 7.3 % (0-10); Neutrophil # 1.99 X10^3/uL (2.7-7.7); Neutrophil % 58.3 % (47-70); Platelet Count 203 K/mm3 (150-450); RBC Distribution Width CV 13.2 % (11.6-14.6); Red Blood Count 4.53 M/mm3 (4.2-5.4); White Blood Count 3.4 K/mm3 (4.4-11.0)
[2018-12-08 05:19] LABS: POSITIVE COUNT NO; POSITIVE DIFFERENTIAL NO; POSITIVE MORPHOLOGY NO
[2018-12-08 05:20] LABS: Prothrombin Time (Protime)PT. 13.3 SECONDS (11.7-14.9)
[2018-12-08] MEDS: Lisinopril 40 MG Tablet PO (05:36)
[2018-12-08] MEDS: Aspirin 81 MG TAB.CHEW PO (05:36)
[2018-12-08 05:37] LABS: Partial Thromboplast Time 31.6 Seconds (24.1-36.2)
[2018-12-08 05:51] LABS: AST(SGOT) 13 U/L (15-37); Alanine Aminotransfer ALT/SGPT 16 U/L (13-56); Albumin, Serum 3.5 g/dL (3.2-5.0); Alkaline Phosphatase 55 U/L (45-117); Anion Gap 2 (5-15); BUN 16 mg/dL (7-18); BUN/Creat Ratio 20.4 RATIO (10-20); Bilirubin, Direct 0.14 mg/dL (0.00-0.30); Calcium,Total 8.5 mg/dL (8.5-10.1); Chloride 110 mmol/L (98-107); Cholesterol 230 mg/dL (200); Creatinine, Serum 0.78 mg/dL (0.55-1.02); EST Glomerular Filtration Rate 77 mL/min (>60); Est Glom Filt Rate - Afr Amer 93 mL/min (>60); Glucose 83 mg/dL (74-106); High Density Lipoprotein 61 mg/dL; Protein, Total 6.5 g/dL (6.4-8.2); Sodium Level 140 mmol/L (136-145); Triglycerides 78 mg/dL; Very Low Density Lipoprotein 16 mg/dL (5-40)
--- NOTE | 2018-12-08 05:55 | EKG12_ITS ---
Test Reason : Blood Pressure : / mmHG Vent. Rate : 064 BPM Atrial Rate : 064 BPM P-R Int : 144 ms QRS Dur : 090 ms QT Int : 424 ms P-R-T Axes : 067 047 027 degrees QTc Int : 437 ms Sinus rhythm with occasional Premature ventricular complexes Otherwise normal ECG When compared with ECG of 07-DEC-2018 14:32, MANUAL COMPARISON REQUIRED, DATA IS UNCONFIRMED Confirmed by BIJAN GAMBINO, DOROTHY ([id number]), photo editor LALIT CARDENAS ([id number]) on 12/09/2018 9:45:54 AM Referred By: Confirmed By:DOROTHY THAKKAR MD
[2018-12-08] MEDS: Metoprolol Tartrate 25 MG Tablet PO (13:12)
[2018-12-08] MEDS: amLODIPine 5 MG Tablet PO (13:13)
[2018-12-08] MEDS: buPROPion (XL) 150 MG TABLET.XL PO (13:17)
--- NOTE | 2018-12-08 13:18 | PCM.PN.CARD ---
Subjectve: The patient states she feels better today. She denies any ongoing chest discomfort or difficulty breathing. She denies obvious palpitations. She denies any recurrent near syncope or syncope since being in the hospital. Objective: Vital Signs Temp Pulse Resp BP Pulse Ox 97.8 F 66 16 137/60 H 99 12/08/18 13:10 12/08/18 13:12 12/08/18 13:10 12/08/18 13:10 12/08/18 13:10 Oxygen Delivery Method Room Air Weight: 135 lb 12.8 oz Body Mass Index (BMI) 24.8 Orthostatic Vital Signs Start: 12/07/18 17:31 Freq: q24h Status: Active Protocol: Activity Type Activity Date Activity User E-Sign Co-Sign Detail Recorded Client Recorded Date Recorded By Document 12/07/18 17:31 NEIL [id number] 12/07/18 17:34 ZZB 12/07/18 17:31 Orthostatic Vitals Standing -Blood Pressure (90/60-120/80) 128/62 H -Extremity Use Left Arm -Pulse Rate (60-100) 74 Sitting -Blood Pressure (90/60-120/80) 131/68 H -Extremity Use Left Arm -Pulse Rate (60-100) 67 Lying -Blood Pressure (90/60-120/80) 143/73 H -Pulse Rate (60-100) 63 Intake and Output for Last 24 Hours 12/06/18 12/07/18 12/08/18 23:59 23:59 23:59 Intake Total 1165 / 1165 1621 / 1621 Balance 1165 / 1165 1621 / 1621 General: Awake, Alert, Oriented x 3, Cooperative, No Acute Distress HEENT: Atraumatic, Normocephalic, PERRL, EOMI, Sclera Non Icteric Oral: Moist Mucosa Neck: Supple, Good ROM, No JVD Lungs: Clear to auscultation Cardiovascular: Regular Rhythm, Normal S1, Normal S2 Abdomen: Bowel Sounds Present, Soft, Non Tender Extremities: No Cyanosis, No Clubbing, No edema Neurological: No Focal Motor or Sensory Deficit Psych/Mental Status: Appropriate 12/07/18 14:47: WBC 6.3, RBC 4.83, Hgb 13.5, Hct 40.4, MCV 83.6, MCH 28.0, MCHC 33.4, RDW 13.3, RDW Differential 40.4, Plt Count 203, MPV 10.0, Immature Gran % (Auto) 0.200, Neut % (Auto) 68.9, Lymph % (Auto) 22.2, [place] % (Auto) 7.0, Eos % (Auto) 1.1, Baso % (Auto) 0.6, Absolute Neuts (auto) 4.3, Total Counted Not Reportable 12/07/18 14:47: Sodium 138, Potassium 3.8, Chloride 103, Carbon Dioxide 30.0, Anion Gap 5, BUN 22 H, Creatinine 1.19 H, Est GFR (MDRD) Af Amer 58 L, Est GFR (MDRD) Non-Af 48 L, BUN/Creatinine Ratio 18.5, Glucose 86, Calcium 9.0, Troponin I < 0.015 12/07/18 17:55: Troponin I < 0.015 12/07/18 20:48: Magnesium 2.2, Troponin I < 0.015 12/08/18 04:50: Sodium 140, Potassium 4.0, Chloride 110 H, Carbon Dioxide 28.0, Anion Gap 2 L, BUN 16, Creatinine 0.78, Est GFR (MDRD) Af Amer 93, Est GFR (MDRD) Non-Af 77, BUN/Creatinine Ratio 20.4 H, Glucose 83, Calcium 8.5, Total Bilirubin 0.60, Direct Bilirubin 0.14, Triglycerides 78, Cholesterol 230 H, LDL Cholesterol 153 H, VLDL Cholesterol 16, HDL Cholesterol 61 12/08/18 04:50: WBC 3.4 L, RBC 4.53, Hgb 12.6, Hct 37.5, MCV 82.8, MCH 27.8, MCHC 33.6, RDW 13.2, RDW Differential 39.0, Plt Count 203, MPV 10.5, Immature Gran % (Auto) 0.000, Neut % (Auto) 58.3, Lymph % (Auto) 32.3, [place] % (Auto) 7.3, Eos % (Auto) 1.5, Baso % (Auto) 0.6, Absolute Neuts (auto) 2.0, Total Counted Not Reportable 12/08/18 04:50: PT 13.3, INR 1.0, APTT 31.6 Rhythm: Sinus rhythm; PVCs EKG: Sinus rhythm; no acute ECG changes ECHO: Pending Stress Test: Preliminary report: Considered negative for stress-induced myocardial ischemia Medical Necessity - Tobacco Use Smoking Status: Current every day smoker Tobacco Use: Cigarettes Assessment/Plan 1. Near syncope/syncope The patient has had recurrent episodes of near syncope/syncope. The etiology is unclear. The patient does have underlying cardiovascular disease as previously noted with a history of CAD status post RCA PTCA/stent as well as underlying ventricular ectopy with PVCs and brief episodes of nonsustained wide-complex tachycardia thought compatible with nonsustained VT. He continues evaluation and care. Thus far her cardiac rhythm has demonstrated occasional PVCs. Her cardiovascular evaluation has been unremarkable for evidence of stress-induced myocardial ischemia or previous myocardial injury/infarction based upon the information obtained thus far. She has also been receiving hydration based on concerns of possible diuretic induced intravascular volume depletion and orthostatic changes. Overall she states she feels better at the moment. If she remains symptomatically and hemodynamically stable and her echocardiogram does not demonstrate any acute changes then consideration will be given as to whether or not she needs any further cardiac evaluation at this time versus avoidance of diuretic therapy and avoidance of dehydration and orthostasis. If there are concerns going forward of any additional concerns of cardiac rhythm involvement that she may need further evaluated as an outpatient with ambulatory cardiac monitoring. 2. PVCs Again she has underlying ventricular ectopy. She will need continued evaluation and care as noted above. 3. CAD status post RCA PTCA/stent She should continue risk factor evaluation and care. In the interim she will continue to be followed with cardiac enzymes and ECG. Her pharmacologic stress nuclear imaging study was reported as negative. Thus it does not appear she requires repeat evaluation with cardiac catheterization at this time. She will continue medical management as deemed appropriate. 4. Dyslipidemia The patient's lipid labs have been reevaluated. Her lipids are elevated. Based upon that with her history of CAD and PCI she should be considered for lipid-lowering therapy. 5. Hypertension The patient's blood pressure will be monitored. She will continue medical management with adjustment as needed. However, if it is felt over time that her diuretic therapy contributed to her orthostatic changes and current symptoms then she will need continued consideration for nondiuretic antihypertensive therapy. Comment: The above was discussed with the patient and her family members presentl. This note was generated with [employer] software. It may contain incorrect words, spelling, and punctuation that were not noted in checking the note before signing.
--- NOTE | 2018-12-08 13:22 | PN.CARD_ITS ---
Subjectve: The patient states she feels better today. She denies any ongoing chest discomfort or difficulty breathing. She denies obvious palpitations. She de nies any recurrent near syncope or syncope since being in the hospital. Objective: Vital Signs Temp Pulse Resp BP Pulse Ox 97.8 F 66 16 137/60 H 99 12/08/18 13:10 12/08/18 13:12 12/08/18 13:10 12/08/18 13:10 12/08/18 13:10 Oxygen Delivery Method Room Air Weight: 135 lb 12.8 oz Body Mass Index (BMI) 24.8 Orthostatic Vital Signs Start: 12/07/18 17:31 Freq: q24h Status: Active Protocol: Activity Type Activity Date Activity User E-Sign Co-Sign Detail Recorded Client Recorded Date Recorded By Document 12/07/18 17:31 NEIL [id number] 12/07/18 17:34 [id number] 12/07/18 17:31 Orthostatic Vitals Standing -Blood Pressure (90/60-120/80) 128/62 H -Extremity Use Left Arm -Pulse Rate (60-100) 74 Sitting -Blood Pressure (90/60-120/80) 131/68 H -Extremity Use Left Arm -Pulse Rate (60-100) 67 Lying -Blood Pressure (90/60-120/80) 143/73 H -Pulse Rate (60-100) 63 Intake and Output for Last 24 Hours 12/06/18 12/07/18 12/08/18 23:59 23:59 23:59 Intake Total 1165 / 1165 1621 / 1621 Balance 1165 / 1165 1621 / 1621 General: Awake, Alert, Oriented x 3, Cooperative, No Acute Distress HEENT: Atraumatic, Normocephalic, PERRL, EOMI, Sclera Non Icteric Oral: Moist Mucosa Neck: Supple, Good ROM, No JVD Lungs: Clear to auscultation Cardiovascular: Regular Rhythm, Normal S1, Normal S2 Abdomen: Bowel Sounds Present, Soft, Non Tender Extremities: No Cyanosis, No Clubbing, No edema Neurological: No Focal Motor or Sensory Deficit Psych/Mental Status: Appropriate 12/07/18 14:47: WBC 6.3, RBC 4.83, Hgb 13.5, Hct 40.4, MCV 83.6, MCH 28.0, MCHC 33.4, RDW 13.3, RDW Differential 40.4, Plt Count 203, MPV 10.0, Immature Gran % (Auto) 0.200, Neut % (Auto) 68.9, Lymph % (Auto) 22.2, [place] % (Auto) 7.0, Eos % (Auto) 1.1, Baso % (Auto) 0.6, Absolute Neuts (auto) 4.3, Total Counted Not Reportable 12/07/18 14:47: Sodium 138, Potassium 3.8, Chloride 103, Carbon Dioxide 30.0, Anion Gap 5, BUN 22 H, Creatinine 1.19 H, Est GFR (MDRD) Af Amer 58 L, Est GFR (MDRD) Non-Af 48 L, BUN/Creatinine Ratio 18.5, Glucose 86, Calcium 9.0, Troponin I < 0.015 12/07/18 17:55: Troponin I < 0.015 12/07/18 20:48: Magnesium 2.2, Troponin I < 0.015 12/08/18 04:50: Sodium 140, Potassium 4.0, Chloride 110 H, Carbon Dioxide 28.0, Anion Gap 2 L, BUN 16, Creatinine 0.78, Est GFR (MDRD) Af Amer 93, Est GFR (MDRD) Non-Af 77, BUN/Creatinine Ratio 20.4 H, Glucose 83, Calcium 8.5, Total Bilirubin 0.60, Direct Bilirubin 0.14, Triglycerides 78, Cholesterol 230 H, LDL Cholesterol 153 H, VLDL Cholesterol 16, HDL Cholesterol 61 12/08/18 04:50: WBC 3.4 L, RBC 4.53, Hgb 12.6, Hct 37.5, MCV 82.8, MCH 27.8, MCHC 33.6, RDW 13.2, RDW Differential 39.0, Plt Count 203, MPV 10.5, Immature Gran % (Auto) 0.000, Neut % (Auto) 58.3, Lymph % (Auto) 32.3, [place] % (Auto) 7.3, Eos % (Auto) 1.5, Baso % (Auto) 0.6, Absolute Neuts (auto) 2.0, Total Counted Not Reportable 12/08/18 04:50: PT 13.3, INR 1.0, APTT 31.6 Rhythm: Sinus rhythm; PVCs EKG: Sinus rhythm; no acute ECG changes ECHO: Pending Stress Test: Preliminary report: Considered negative for stress-induced myocardial ischemia Medical Necessity - Tobacco Use Smoking Status: Current every day smoker Tobacco Use: Cigarettes Assessment/Plan 1. Near syncope/syncope The patient has had recurrent episodes of near syncope/syncope. The etiology is unclear. The patient does have underlying cardiovascular disease as previously noted with a history of CAD status post RCA PTCA/stent as well as underlying ventricular ectopy with PVCs and brief episodes of nonsustained wide-complex tachycardia thought compatible with nonsustained VT. He continues evaluation and care. Thus far her cardiac rhythm has demonstrated occasional PVCs. Her cardiovascular evaluation has been unremarkable for evidence of stress- induced myocardial ischemia or previous myocardial injury/infarction based upon the information obtained thus far. She has also been receiving hydration based on concerns of possible diuretic induced intravascular volume depletion and orthostatic changes. Overall she states she feels better at the moment. If she remains symptomatically and hemodynamically stable and her echocardiogram does not demonstrate any acute changes then consideration will be given as to whether or not she needs any further cardiac evaluation at this time versus avoidance of diuretic therapy and avoidance of dehydration and orthostasis. If there are concerns going forward of any additional concerns of cardiac rhythm involvement that she may need further evaluated as an outpatient with ambulatory cardiac monitoring. 2. PVCs Again she has underlying ventricular ectopy. She will need continued evaluation and care as noted above. 3. CAD status post RCA PTCA/stent She should continue risk factor evaluation and care. In the interim she will continue to be followed with cardiac enzymes and ECG. Her pharmacologic stress nuclear imaging study was reported as negative. Thus it does not appear she requires repeat evaluation with cardiac catheterization at this time. She will continue medical management as deemed appropriate. 4. Dyslipidemia The patient's lipid labs have been reevaluated. Her lipids are elevated. Based upon that with her history of CAD and PCI she should be considered for lipid- lowering therapy. 5. Hypertension The patient's blood pressure will be monitored. She will continue medical management with adjustment as needed. However, if it is felt over time that her diuretic therapy contributed to her orthostatic changes and current symptoms then she will need continued consideration for nondiuretic antihypertensive therapy. Comment: The above was discussed with the patient and her family members presentl. This note was generated with [employer] software. It may contain incorrect words, spelling, and punctuation that were not noted in checking the note before signing.
--- NOTE | 2018-12-08 15:39 | PCM.DC ---
- Discharge Diagnoses Current Active Problems: Current Active and Chronic Problems CAD (coronary artery disease) (Chronic) S/P PTCA (percutaneous transluminal coronary angioplasty) (Chronic) You will use the following diet at home:: Cardiac Discharge Activity: Return to Normal Activity Call your doctor if you observe: Shortness of breath, Dizziness, Fainting spells, Chest pain, Increased palpitations (irregular heartbeat) Allergies/Adverse Reactions: Allergies tetracycline Allergy (Verified 05/16/15 07:01) Unknown Medications to take at Discharge Aspirin [Aspirin, Baby] 81 mg PO DAILY@0800 05/16/15 Metoprolol Tartrate [Lopressor (beta yuan)] 25 mg PO BID 05/16/15 Amlodipine Besylate 10 mg PO DAILY 12/07/18 Lisinopril 40 mg PO DAILY 12/07/18 buPROPion SR [Wellbutrin SR (150mg tablets)] 150 mg PO DAILY 12/07/18 Atorvastatin Calcium [Lipitor] 40 mg PO QHS #30 tablet 12/08/18 The following prescriptions were given: Atorvastatin Calcium [Lipitor] 40 mg PO QHS #30 tablet Primary Care Physician: Josiah Carlos MD [Primary Care Provider] - Please follow up with your Primary Care Physician in: 1 Week Test Results: Test results from this visit will be discussed in further detail at your follow-up appointment, if applicable. Please Follow Up With: Alexandre Coley MD When: 1-2 Weeks, May see SALES REPRESENTATIVE DOOR TO DOOR/PA Proposed Discharge Date: 12/08/18
--- NOTE | 2018-12-08 15:40 | PCM.DC.SUM ---
<Arminda Fournier - Last Filed: 12/08/18 16:41> Discharge Date and Diagnosis Date of Admission: 12/07/18 Date of Discharge: 12/08/18 - Primary Discharge Diagnosis 1. Syncope, secondary to orthostatic hypotension as a result of dehydration 2. Orthostatic hypotension, secondary to hypovolemia 3. Acute kidney injury secondary to dehydration/HCTZ regimen 4. CAD status post PCI to RCA 5. History of paroxysmal nonsustained ventricular tachycardia 6. Hypertension 7. Depression/anxiety 8. Tobacco dependence 9. Hyperlipidemia - Secondary Discharge Diagnosis Chronic Problems CAD (coronary artery disease) (Chronic) S/P PTCA (percutaneous transluminal coronary angioplasty) (Chronic) Tobacco abuse (Chronic) PVC (premature ventricular contraction) (Chronic) Smoker (Chronic) 1 ppd Dyslipidemia (Chronic) Benign essential hypertension (Chronic) Hospital Course and Treatment Imaging Results: Diagnostic Data Chest X-Ray 12/07/18 14:10 IMPRESSION: No acute thoracic pathology. Electronically Signed: Keanu Larissa, at 15:31 EDT Tel , Service support , Dr. Coley- Cardiology Operations: None Procedures: Stress test, - - Carotid US Summary of Care Provided: The patient is a 68 year old F admitted admitted 12/07/2018 due to syncope. She has a past medical history of CAD status post PCI to RCA, paroxysmal nonsustained ventricular tachycardia, hypertension, depression/anxiety, tobacco dependence. 1. Syncope, secondary to orthostatic hypotension-history of arrhythmia/CAD. Cardiology consulted. EKG/telemetry with PVCs. Troponin negative. Patient underwent nuclear stress test which was negative for ischemia. Carotid duplex ultrasound with less than 50% stenosis bilaterally. Echocardiogram completed and will be reviewed prior to discharge. Orthostatic vitals positive on admission, repeat orthostatic vitals negative following hydration. Home HCTZ regimen will be discontinued at discharge. Patient will follow-up with Dr. Coley in 1-2 weeks. 2. Orthostatic hypotension, secondary to hypovolemia-resolved with IV fluids. 3. Acute kidney injury secondary to dehydration/HCTZ regimen-resolved. 4. CAD status post PCI to RCA-continue aspirin, metoprolol. Stress negative. Follow-up with Dr. Moodispaw as noted above. 5. History of paroxysmal nonsustained ventricular tachycardia- no episodes on telemetry during admission. Few PVCs. 6. Hypertension-stable, continue amlodipine, lisinopril, metoprolol. HCTZ discontinued. 7. Depression/anxiety-continue Wellbutrin regimen. 8. Tobacco dependence-encouraged smoking cessation. General: Alert, Oriented x3, Cooperative HEENT: Atraumatic, PERRLA, EOMI, Normocephalic Neck: Supple, No JVD, Negative Carotid Bruits Lungs: Clear to auscultation, Normal air movement Cardiovascular: Regular rate, Regular Rhythm, Normal S1, Normal S2, No murmurs Abdomen: Bowel Sounds Present, Soft, Non Tender, Non-Distended Extremities: No clubbing, No cyanosis, No edema, Capillary Refill Less than 3 Seconds Skin: No rashes, No breakdown Musculoskeletal: No Tenderness to Palpation of Joints or Extremities Neurological: Cranial nerves II-XII grossly intact, Neuro grossly intact Psych/Mental Status: Normal Affect, Appropriate Patient seen and examined prior to discharge. Physical assessment as noted above. Patient is stable for discharge with follow up recommendations as noted above. This patient was seen by KHANG Sanz under the supervision of Dr. Khan. - Physical Exam Vital Signs Temp Pulse Resp BP Pulse Ox 98.6 F 61 18 145/65 H 97 12/08/18 15:15 12/08/18 15:17 12/08/18 15:15 12/08/18 15:17 12/08/18 15:15 Oxygen Delivery Method Room Air Weight: 135 lb 12.8 oz Body Mass Index (BMI) 24.8 Orthostatic Vital Signs Start: 12/07/18 17:31 Freq: q24h Status: Active Protocol: Activity Type Activity Date Activity User E-Sign Co-Sign Detail Recorded Client Recorded Date Recorded By Document 12/08/18 15:17 [id number] 12/08/18 15:22 ZZB 12/08/18 15:17 Orthostatic Vitals Standing -Blood Pressure (90/60-120/80) 129/63 H -Extremity Use Left Arm -Pulse Rate (60-100) 64 Sitting -Blood Pressure (90/60-120/80) 128/68 H -Extremity Use Left Arm -Pulse Rate (60-100) 63 Lying -Blood Pressure (90/60-120/80) 145/65 H -Extremity Use Left Arm -Pulse Rate (60-100) 61 Intake and Output for Last 24 Hours 12/06/18 12/07/18 12/08/18 23:59 23:59 23:59 Intake Total 1165 / 1165 1621 / 1621 Balance 1165 / 1165 1621 / 1621 Laboratory Tests Past 24 Hrs 12/07/18 12/07/18 12/08/18 17:55 20:48 04:50 WBC RBC Hgb Hct MCV MCH MCHC RDW RDW Differential Plt Count MPV Immature Gran % (Auto) Neut % (Auto) Lymph % (Auto) Sanborn % (Auto) Eos % (Auto) Baso % (Auto) Absolute Neuts (auto) Absolute Lymphs (auto) Total Counted PT INR APTT Sodium 140 Potassium 4.0 Chloride 110 H Carbon Dioxide 28.0 Anion Gap 2 L BUN 16 Creatinine 0.78 Estim Creat Clear Calc 41.40 Est GFR (MDRD) Af Amer 93 Est GFR (MDRD) Non-Af 77 BUN/Creatinine Ratio 20.4 H Glucose 83 Calcium 8.5 Magnesium 2.2 Total Bilirubin 0.60 Direct Bilirubin 0.14 AST 13 L ALT 16 Alkaline Phosphatase 55 Troponin I < 0.015 < 0.015 Total Protein 6.5 Albumin 3.5 Globulin 3.0 Triglycerides 78 Cholesterol 230 H LDL Cholesterol 153 H VLDL Cholesterol 16 HDL Cholesterol 61 12/08/18 12/08/18 04:50 04:50 WBC 3.4 L RBC 4.53 Hgb 12.6 Hct 37.5 MCV 82.8 MCH 27.8 MCHC 33.6 RDW 13.2 RDW Differential 39.0 Plt Count 203 MPV 10.5 Immature Gran % (Auto) 0.000 Neut % (Auto) 58.3 Lymph % (Auto) 32.3 Sanborn % (Auto) 7.3 Eos % (Auto) 1.5 Baso % (Auto) 0.6 Absolute Neuts (auto) 2.0 Absolute Lymphs (auto) 1.10 Total Counted Not Reportable PT 13.3 INR 1.0 APTT 31.6 Sodium Potassium Chloride Carbon Dioxide Anion Gap BUN Creatinine Estim Creat Clear Calc Est GFR (MDRD) Af Amer Est GFR (MDRD) Non-Af BUN/Creatinine Ratio Glucose Calcium Magnesium Total Bilirubin Direct Bilirubin AST ALT Alkaline Phosphatase Troponin I Total Protein Albumin Globulin Triglycerides Cholesterol LDL Cholesterol VLDL Cholesterol HDL Cholesterol Discharge Diet: Low fat/ Low Cholesterol Discharge Activity: Return to Normal Activity Call your doctor if you observe: Shortness of breath, Dizziness, Fainting spells, Chest pain, Increased palpitations (irregular heartbeat) Home Medications: Medications to take at Discharge Aspirin [Aspirin, Baby] 81 mg PO DAILY@0800 05/16/15 Metoprolol Tartrate [Lopressor (beta yuan)] 25 mg PO BID 05/16/15 Amlodipine Besylate 10 mg PO DAILY 12/07/18 Lisinopril 40 mg PO DAILY 12/07/18 buPROPion SR [Wellbutrin SR (150mg tablets)] 150 mg PO DAILY 12/07/18 Atorvastatin Calcium [Lipitor] 40 mg PO QHS #30 tab 12/08/18 Following Prescrptions Were Given to Patient: Atorvastatin Calcium [Lipitor] 40 mg PO QHS #30 tab Primary Care Physician: Josiah Carlos MD [Primary Care Provider] - Please follow up with your Primary Care Physician in: 1 Week Please Follow Up With: Alexandre Coley MD When: 1-2 Weeks, 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 Disposition: Home Minutes spent on discharge:: 35 Patient Condition:: Stable Medical Necessity - Tobacco Use Smoking Status: Current every day smoker Tobacco Use: Cigarettes Meaningful Use Info Meaningful Use Diagnoses (Choose all that apply): None applicable <Joshua Khan - Last Filed: 12/08/18 17:32> Discharge Date and Diagnosis - Secondary Discharge Diagnosis Chronic Problems CAD (coronary artery disease) (Chronic) S/P PTCA (percutaneous transluminal coronary angioplasty) (Chronic) Tobacco abuse (Chronic) PVC (premature ventricular contraction) (Chronic) Smoker (Chronic) 1 ppd Dyslipidemia (Chronic) Benign essential hypertension (Chronic) Hospital Course and Treatment Operations: None Procedures: Stress test, - Summary of Care Provided: Patient seen and examined independently. Data reviewed. I agree with the above note by the nurse practitioner. The patient is a 68 year old F presents with recurrent sickle episodes. Patient did have positive orthostasis. HCTZ was discontinued. Stress test, carotid ultrasound were performed. Carotid ultrasound showed less than 50% stenosis bilaterally. Overall patient is feeling better and will be discharged home. [] - Physical Exam General: Alert, No apparent distress HEENT: Atraumatic, Normocephalic Oral: Moist Mucosa, No Gingival or Mucosal Lesions/ Ulcerations Neck: Negative Carotid Bruits, No Nodes, Thyroid Normal Size and Texture Lungs: Clear to auscultation, Normal air movement, No rhonchi, No wheeze Cardiovascular: Regular rate, Regular Rhythm, Normal S1, Normal S2, No murmurs Abdomen: Bowel Sounds Present, Soft, Non Tender, Non-Distended, No Hepato-splenomegaly Extremities: No edema, No Calf Tenderness Skin: No rashes, No breakdown Psych/Mental Status: Normal Affect, Appropriate Vital Signs Temp Pulse Resp BP Pulse Ox 37.0 C 61 18 145/65 H 97 12/08/18 15:15 12/08/18 15:26 12/08/18 15:15 12/08/18 15:17 12/08/18 15:15 Oxygen Delivery Method Room Air Weight: 61.598 kg Body Mass Index (BMI) 24.8 Orthostatic Vital Signs Start: 12/07/18 17:31 Freq: q24h Status: Active Protocol: Activity Type Activity Date Activity User E-Sign Co-Sign Detail Recorded Client Recorded Date Recorded By Document 12/08/18 15:17 [email or web address] [id number] 12/08/18 15:22 ZZB 12/08/18 15:17 Orthostatic Vitals Standing -Blood Pressure (90/60-120/80) 129/63 H -Extremity Use Left Arm -Pulse Rate (60-100) 64 Sitting -Blood Pressure (90/60-120/80) 128/68 H -Extremity Use Left Arm -Pulse Rate (60-100) 63 Lying -Blood Pressure (90/60-120/80) 145/65 H -Extremity Use Left Arm -Pulse Rate (60-100) 61 Intake and Output for Last 24 Hours 12/06/18 12/07/18 12/08/18 23:59 23:59 23:59 Intake Total 1165 / 1165 1621 / 1621 Balance 1165 / 1165 1621 / 1621 Laboratory Tests Past 24 Hrs 12/07/18 12/07/18 12/08/18 17:55 20:48 04:50 WBC RBC Hgb Hct MCV MCH MCHC RDW RDW Differential Plt Count MPV Immature Gran % (Auto) Neut % (Auto) Lymph % (Auto) Sanborn % (Auto) Eos % (Auto) Baso % (Auto) Absolute Neuts (auto) Absolute Lymphs (auto) Total Counted PT INR APTT Sodium 140 Potassium 4.0 Chloride 110 H Carbon Dioxide 28.0 Anion Gap 2 L BUN 16 Creatinine 0.78 Estim Creat Clear Calc 41.40 Est GFR (MDRD) Af Amer 93 Est GFR (MDRD) Non-Af 77 BUN/Creatinine Ratio 20.4 H Glucose 83 Calcium 8.5 Magnesium 2.2 Total Bilirubin 0.60 Direct Bilirubin 0.14 AST 13 L ALT 16 Alkaline Phosphatase 55 Troponin I < 0.015 < 0.015 Total Protein 6.5 Albumin 3.5 Globulin 3.0 Triglycerides 78 Cholesterol 230 H LDL Cholesterol 153 H VLDL Cholesterol 16 HDL Cholesterol 61 12/08/18 12/08/18 04:50 04:50 WBC 3.4 L RBC 4.53 Hgb 12.6 Hct 37.5 MCV 82.8 MCH 27.8 MCHC 33.6 RDW 13.2 RDW Differential 39.0 Plt Count 203 MPV 10.5 Immature Gran % (Auto) 0.000 Neut % (Auto) 58.3 Lymph % (Auto) 32.3 Sanborn % (Auto) 7.3 Eos % (Auto) 1.5 Baso % (Auto) 0.6 Absolute Neuts (auto) 2.0 Absolute Lymphs (auto) 1.10 Total Counted Not Reportable PT 13.3 INR 1.0 APTT 31.6 Sodium Potassium Chloride Carbon Dioxide Anion Gap BUN Creatinine Estim Creat Clear Calc Est GFR (MDRD) Af Amer Est GFR (MDRD) Non-Af BUN/Creatinine Ratio Glucose Calcium Magnesium Total Bilirubin Direct Bilirubin AST ALT Alkaline Phosphatase Troponin I Total Protein Albumin Globulin Triglycerides Cholesterol LDL Cholesterol VLDL Cholesterol HDL Cholesterol Discharge Diet: Low fat/ Low Cholesterol Discharge Activity: Return to Normal Activity Call your doctor if you observe: Shortness of breath, Dizziness, Fainting spells, Chest pain, Increased palpitations (irregular heartbeat) Disposition: Home Medical Necessity - Tobacco Use Smoking Status: Current every day smoker Tobacco Use: Cigarettes Meaningful Use Info Meaningful Use Diagnoses (Choose all that apply): None applicable Code Visit OBSV E&M: 49488 Observation care discharge
--- NOTE | 2018-12-08 15:41 | CHAPLAIN ---
Type of Pastoral Visit _x__ Initial Visit ___ Follow-up Visit ___ On-call Visit ___ General Patient Visit ___ Spiritual Assessment ___ Family Conference ___ Bereavement ___ Rapid Response ___ Code Blue ___ Other (describe below) Pastoral Care Referral From _x__ Patient ___ Family ___ Nurse ___ Physician ___ Commissions Analyst ___ Associate Professor Of Geography ___ Other (describe below) Sacrament/Intervention _x__ Active listening ___ Anointing ___ Lutheran ___ Bereavement ___ Communion ___ Alda exploration ___ ___ Life review ___ Prayer ___ Reconciliation ___ Sacrament of Sick ___ Supportive presence ___ Wedding ___ Other (describe below) Pastoral Comments
--- NOTE | 2018-12-08 15:52 | DS.PCM_ITS ---
Addendum entered and electronically signed by KHANG Sanz 12/08/18 16:42: Code Visit Echocardiogram showed an EF of 75%, mild tricuspid valve insufficiency, RVSP estimated to be 37 mmHg, mild pulmonary hypertension. Original Note: <Arminda Fournier - Last Filed: 12/08/18 16:41> Discharge Date and Diagnosis Date of Admission: 12/07/18 Date of Discharge: 12/08/18 - Primary Discharge Diagnosis 1. Syncope, secondary to orthostatic hypotension as a result of dehydration 2. Orthostatic hypotension, secondary to hypovolemia 3. Acute kidney injury secondary to dehydration/HCTZ regimen 4. CAD status post PCI to RCA 5. History of paroxysmal nonsustained ventricular tachycardia 6. Hypertension 7. Depression/anxiety 8. Tobacco dependence 9. Hyperlipidemia - Secondary Discharge Diagnosis Chronic Problems CAD (coronary artery disease) (Chronic) S/P PTCA (percutaneous transluminal coronary angioplasty) (Chronic) Tobacco abuse (Chronic) PVC (premature ventricular contraction) (Chronic) Smoker (Chronic) 1 ppd Dyslipidemia (Chronic) Benign essential hypertension (Chronic) Hospital Course and Treatment Imaging Results: Diagnostic Data Chest X-Ray 12/07/18 14:10 IMPRESSION: No acute thoracic pathology. Electronically Signed: Keanu Patelisadora, at 15:31 EDT Tel , Service support , Dr. Coley- Cardiology Operations: None Procedures: Stress test, - - Carotid US Summary of Care Provided: The patient is a 68 year old F admitted admitted 12/07/2018 due to syncope. She has a past medical history of CAD status post PCI to RCA, paroxysmal nonsustained ventricular tachycardia, hypertension, depression/anxiety, tobacco dependence. 1. Syncope, secondary to orthostatic hypotension-history of arrhythmia/CAD. Cardiology consulted. EKG/telemetry with PVCs. Troponin negative. Patient underwent nuclear stress test which was negative for ischemia. Carotid duplex ultrasound with less than 50% stenosis bilaterally. Echocardiogram completed and will be reviewed prior to discharge. Orthostatic vitals positive on admission, repeat orthostatic vitals negative following hydration. Home HCTZ regimen will be discontinued at discharge. Patient will follow-up with Dr. Coley in 1-2 weeks. 2. Orthostatic hypotension, secondary to hypovolemia-resolved with IV fluids. 3. Acute kidney injury secondary to dehydration/HCTZ regimen-resolved. 4. CAD status post PCI to RCA-continue aspirin, metoprolol. Stress negative. Follow-up with Dr. Coley as noted above. 5. History of paroxysmal nonsustained ventricular tachycardia- no episodes on telemetry during admission. Few PVCs. 6. Hypertension-stable, continue amlodipine, lisinopril, metoprolol. HCTZ discontinued. 7. Depression/anxiety-continue Wellbutrin regimen. 8. Tobacco dependence-encouraged smoking cessation. General: Alert, Oriented x3, Cooperative HEENT: Atraumatic, PERRLA, EOMI, Normocephalic Neck: Supple, No JVD, Negative Carotid Bruits Lungs: Clear to auscultation, Normal air movement Cardiovascular: Regular rate, Regular Rhythm, Normal S1, Normal S2, No murmurs Abdomen: Bowel Sounds Present, Soft, Non Tender, Non-Distended Extremities: No clubbing, No cyanosis, No edema, Capillary Refill Less than 3 Seconds Skin: No rashes, No breakdown Musculoskeletal: No Tenderness to Palpation of Joints or Extremities Neurological: Cranial nerves II-XII grossly intact, Neuro grossly intact Psych/Mental Status: Normal Affect, Appropriate Patient seen and examined prior to discharge. Physical assessment as noted above. Patient is stable for discharge with follow up recommendations as noted above. This patient was seen by KHANG Sanz under the supervision of Dr. Khan. - Physical Exam Vital Signs Temp Pulse Resp BP Pulse Ox 98.6 F 61 18 145/65 H 97 12/08/18 15:15 12/08/18 15:17 12/08/18 15:15 12/08/18 15:17 12/08/18 15:15 Oxygen Delivery Method Room Air Weight: 135 lb 12.8 oz Body Mass Index (BMI) 24.8 Orthostatic Vital Signs Start: 12/07/18 17:31 Freq: q24h Status: Active Protocol: Activity Type Activity Date Activity User E-Sign Co-Sign Detail Recorded Client Recorded Date Recorded By Document 12/08/18 15:17 ZZB [id number] 12/08/18 15:22 ZZB 12/08/18 15:17 Orthostatic Vitals Standing -Blood Pressure (90/60-120/80) 129/63 H -Extremity Use Left Arm -Pulse Rate (60-100) 64 Sitting -Blood Pressure (90/60-120/80) 128/68 H -Extremity Use Left Arm -Pulse Rate (60-100) 63 Lying -Blood Pressure (90/60-120/80) 145/65 H -Extremity Use Left Arm -Pulse Rate (60-100) 61 Intake and Output for Last 24 Hours 12/06/18 12/07/18 12/08/18 23:59 23:59 23:59 Intake Total 1165 / 1165 1621 / 1621 Balance 1165 / 1165 1621 / 1621 Laboratory Tests Past 24 Hrs 12/07/18 12/07/18 12/08/18 17:55 20:48 04:50 WBC RBC Hgb Hct MCV MCH MCHC RDW RDW Differential Plt Count MPV Immature Gran % (Auto) Neut % (Auto) Lymph % (Auto) Floyd % (Auto) Eos % (Auto) Baso % (Auto) Absolute Neuts (auto) Absolute Lymphs (auto) Total Counted PT INR APTT Sodium 140 Potassium 4.0 Chloride 110 H Carbon Dioxide 28.0 Anion Gap 2 L BUN 16 Creatinine 0.78 Estim Creat Clear Calc 41.40 Est GFR (MDRD) Af Amer 93 Est GFR (MDRD) Non-Af 77 BUN/Creatinine Ratio 20.4 H Glucose 83 Calcium 8.5 Magnesium 2.2 Total Bilirubin 0.60 Direct Bilirubin 0.14 AST 13 L ALT 16 Alkaline Phosphatase 55 Troponin I < 0.015 < 0.015 Total Protein 6.5 Albumin 3.5 Globulin 3.0 Triglycerides 78 Cholesterol 230 H LDL Cholesterol 153 H VLDL Cholesterol 16 HDL Cholesterol 61 12/08/18 12/08/18 04:50 04:50 WBC 3.4 L RBC 4.53 Hgb 12.6 Hct 37.5 MCV 82.8 MCH 27.8 MCHC 33.6 RDW 13.2 RDW Differential 39.0 Plt Count 203 MPV 10.5 Immature Gran % (Auto) 0.000 Neut % (Auto) 58.3 Lymph % (Auto) 32.3 Floyd % (Auto) 7.3 Eos % (Auto) 1.5 Baso % (Auto) 0.6 Absolute Neuts (auto) 2.0 Absolute Lymphs (auto) 1.10 Total Counted Not Reportable PT 13.3 INR 1.0 APTT 31.6 Sodium Potassium Chloride Carbon Dioxide Anion Gap BUN Creatinine Estim Creat Clear Calc Est GFR (MDRD) Af Amer Est GFR (MDRD) Non-Af BUN/Creatinine Ratio Glucose Calcium Magnesium Total Bilirubin Direct Bilirubin AST ALT Alkaline Phosphatase Troponin I Total Protein Albumin Globulin Triglycerides Cholesterol LDL Cholesterol VLDL Cholesterol HDL Cholesterol Discharge Diet: Low fat/ Low Cholesterol Discharge Activity: Return to Normal Activity Call your doctor if you observe: Shortness of breath, Dizziness, Fainting spells, Chest pain, Increased palpitations (irregular heartbeat) Home Medications: Medications to take at Discharge Aspirin [Aspirin, Baby] 81 mg PO DAILY@0800 05/16/15 Metoprolol Tartrate [Lopressor (beta yuan)] 25 mg PO BID 05/16/15 Amlodipine Besylate 10 mg PO DAILY 12/07/18 Lisinopril 40 mg PO DAILY 12/07/18 buPROPion SR [Wellbutrin SR (150mg tablets)] 150 mg PO DAILY 12/07/18 Atorvastatin Calcium [Lipitor] 40 mg PO QHS #30 tab 12/08/18 Following Prescrptions Were Given to Patient: Atorvastatin Calcium [Lipitor] 40 mg PO QHS #30 tab Primary Care Physician: Josiah Carlos MD [Primary Care Provider] - Please follow up with your Primary Care Physician in: 1 Week Please Follow Up With: Alexandre Coley MD When: 1-2 Weeks, May see FUNERAL DIRECTOR/EMBALMER/PA Disposition: Home Minutes spent on discharge:: 35 Patient Condition:: Stable Medical Necessity - Tobacco Use Smoking Status: Current every day smoker Tobacco Use: Cigarettes Meaningful Use Info Meaningful Use Diagnoses (Choose all that apply): None applicable <Joshua Khan - Last Filed: 12/08/18 17:32> Discharge Date and Diagnosis - Secondary Discharge Diagnosis Chronic Problems CAD (coronary artery disease) (Chronic) S/P PTCA (percutaneous transluminal coronary angioplasty) (Chronic) Tobacco abuse (Chronic) PVC (premature ventricular contraction) (Chronic) Smoker (Chronic) 1 ppd Dyslipidemia (Chronic) Benign essential hypertension (Chronic) Hospital Course and Treatment Operations: None Procedures: Stress test, - Summary of Care Provided: Patient seen and examined independently. Data reviewed. I agree with the above note by the nurse practitioner. The patient is a 68 year old F presents with recurrent sickle episodes. Patient did have positive orthostasis. HCTZ was discontinued. Stress test, carotid ultrasound were performed. Carotid ultrasound showed less than 50% stenosis bilaterally. Overall patient is feeling better and will be discharged home. [] - Physical Exam General: Alert, No apparent distress HEENT: Atraumatic, Normocephalic Oral: Moist Mucosa, No Gingival or Mucosal Lesions/ Ulcerations Neck: Negative Carotid Bruits, No Nodes, Thyroid Normal Size and Texture Lungs: Clear to auscultation, Normal air movement, No rhonchi, No wheeze Cardiovascular: Regular rate, Regular Rhythm, Normal S1, Normal S2, No murmurs Abdomen: Bowel Sounds Present, Soft, Non Tender, Non-Distended, No Hepato- splenomegaly Extremities: No edema, No Calf Tenderness Skin: No rashes, No breakdown Psych/Mental Status: Normal Affect, Appropriate Vital Signs Temp Pulse Resp BP Pulse Ox 37.0 C 61 18 145/65 H 97 12/08/18 15:15 12/08/18 15:26 12/08/18 15:15 12/08/18 15:17 12/08/18 15:15 Oxygen Delivery Method Room Air Weight: 61.598 kg Body Mass Index (BMI) 24.8 Orthostatic Vital Signs Start: 12/07/18 17:31 Freq: q24h Status: Active Protocol: Activity Type Activity Date Activity User E-Sign Co-Sign Detail Recorded Client Recorded Date Recorded By Document 12/08/18 15:17 ZZB [id number] 12/08/18 15:22 ZZB 12/08/18 15:17 Orthostatic Vitals Standing -Blood Pressure (90/60-120/80) 129/63 H -Extremity Use Left Arm -Pulse Rate (60-100) 64 Sitting -Blood Pressure (90/60-120/80) 128/68 H -Extremity Use Left Arm -Pulse Rate (60-100) 63 Lying -Blood Pressure (90/60-120/80) 145/65 H -Extremity Use Left Arm -Pulse Rate (60-100) 61 Intake and Output for Last 24 Hours 12/06/18 12/07/18 12/08/18 23:59 23:59 23:59 Intake Total 1165 / 1165 1621 / 1621 Balance 1165 / 1165 1621 / 1621 Laboratory Tests Past 24 Hrs 12/07/18 12/07/18 12/08/18 17:55 20:48 04:50 WBC RBC Hgb Hct MCV MCH MCHC RDW RDW Differential Plt Count MPV Immature Gran % (Auto) Neut % (Auto) Lymph % (Auto) Floyd % (Auto) Eos % (Auto) Baso % (Auto) Absolute Neuts (auto) Absolute Lymphs (auto) Total Counted PT INR APTT Sodium 140 Potassium 4.0 Chloride 110 H Carbon Dioxide 28.0 Anion Gap 2 L BUN 16 Creatinine 0.78 Estim Creat Clear Calc 41.40 Est GFR (MDRD) Af Amer 93 Est GFR (MDRD) Non-Af 77 BUN/Creatinine Ratio 20.4 H Glucose 83 Calcium 8.5 Magnesium 2.2 Total Bilirubin 0.60 Direct Bilirubin 0.14 AST 13 L ALT 16 Alkaline Phosphatase 55 Troponin I < 0.015 < 0.015 Total Protein 6.5 Albumin 3.5 Globulin 3.0 Triglycerides 78 Cholesterol 230 H LDL Cholesterol 153 H VLDL Cholesterol 16 HDL Cholesterol 61 12/08/18 12/08/18 04:50 04:50 WBC 3.4 L RBC 4.53 Hgb 12.6 Hct 37.5 MCV 82.8 MCH 27.8 MCHC 33.6 RDW 13.2 RDW Differential 39.0 Plt Count 203 MPV 10.5 Immature Gran % (Auto) 0.000 Neut % (Auto) 58.3 Lymph % (Auto) 32.3 Floyd % (Auto) 7.3 Eos % (Auto) 1.5 Baso % (Auto) 0.6 Absolute Neuts (auto) 2.0 Absolute Lymphs (auto) 1.10 Total Counted Not Reportable PT 13.3 INR 1.0 APTT 31.6 Sodium Potassium Chloride Carbon Dioxide Anion Gap BUN Creatinine Estim Creat Clear Calc Est GFR (MDRD) Af Amer Est GFR (MDRD) Non-Af BUN/Creatinine Ratio Glucose Calcium Magnesium Total Bilirubin Direct Bilirubin AST ALT Alkaline Phosphatase Troponin I Total Protein Albumin Globulin Triglycerides Cholesterol LDL Cholesterol VLDL Cholesterol HDL Cholesterol Discharge Diet: Low fat/ Low Cholesterol Discharge Activity: Return to Normal Activity Call your doctor if you observe: Shortness of breath, Dizziness, Fainting spells, Chest pain, Increased palpitations (irregular heartbeat) Disposition: Home Medical Necessity - Tobacco Use Smoking Status: Current every day smoker Tobacco Use: Cigarettes Meaningful Use Info Meaningful Use Diagnoses (Choose all that apply): None applicable Code Visit OBSV E&M: 54272 Observation care discharge
--- NOTE | 2018-12-08 19:16 | STRESSREP ---
Stress Test Report Pharmacologic myocardial perfusion stress test. 68-year-old lady with a history of chest pain. Medications: Norvasc, aspirin, Lovenox, lisinopril, metoprolol. Stress protocol: Resting EKG demonstrates sinus rhythm with a rate of 60 beats minute normal intervals are noted resting blood pressure 158/76 mmHg. 0.4 mg of regadenoson was infused per usual protocol followed by rapid intravenous saline flush injection. Continuous EKG monitoring was performed. Patient maintained sinus rhythm with occasional premature ventricular complexes noted. The maximum heart rate was 100 bpm which was 66% of maximum predicted heart rate the maximum workload was 1 metabolic equivalent. The resting blood pressure 158/76 with a final blood pressure 130/78. Myocardial perfusion protocol. 11.0 mCi of technetium 99m Myoview was injected at rest. 0.4 mg of regadenoson was infused per usual protocol. At peak infusion 36.0 mCi of technetium 99m sestamibi was injected stress images were obtained stress and rest images were reconstructed and compared in the short axis vertical long horizontal long axis. Gated images were also obtained Perfusion SPECT analysis: Review of the stress images demonstrate normal uptake of tracer noted in all areas of the myocardium the resting images similarly demonstrate normal uptake of tracer noted in all areas of the myocardium. No reversibility is noted suggest ischemia. Gated SPECT analysis: The gated ejection fraction is noted to be 88%. Conclusion: Normal pharmacologic myocardial perfusion stress test. Preserved ejection fraction.
== END 2018-12-08 15:39 | disposition home or self-care (01) ==
LOC: ED 14:30 → PCU 16:21
PROVIDERS: Internal Medicine Cardiovascular Disease; Admitting Provider Internal Medicine; Emergency Provider Emergency Medicine; Family Provider Internal Medicine; PCP Internal Medicine
DX: I95.1 Orthostatic hypotension (principal); E86.0 Dehydration; N17.9 Acute kidney failure, unspecified; I25.10 Atherosclerotic heart disease of native coronary artery without angina pectoris; E78.5 Hyperlipidemia, unspecified; I10 Essential (primary) hypertension; F41.9 Anxiety disorder, unspecified; F32.9 Major depressive disorder, single episode, unspecified; F17.210 Nicotine dependence, cigarettes, uncomplicated; I49.3 Ventricular premature depolarization; I27.20 Pulmonary hypertension, unspecified; I08.3 Combined rheumatic disorders of mitral, aortic and tricuspid valves; Z95.5 Presence of coronary angioplasty implant and graft; Z79.82 Long term (current) use of aspirin; Z79.899 Other long term (current) drug therapy
CPT/HCPCS: 36415; 71046; 78452; 80048; 80061; 80076; 83735; 84484; 85025; 85610; 85730; 93005; 93017; 93306; 93880; 96360; 96361; 97161; 97165; 99218; 99285; 99406; A9500; J7030; Q9957; A4216; G0378; J2785

== ENCOUNTER → 2019-01-28 13:54 | Outpatient (CLI) | payer MEDICARE, SELFPAY ==
[2019-01-20 09:50] VITALS: BMI 25.4
[2019-01-28 15:30] LABS: Anion Gap 10 (5-15); BUN 13 mg/dL (7-18); BUN/Creat Ratio 13.3 RATIO (10-20); Calcium,Total 8.9 mg/dL (8.5-10.1); Chloride 106 mmol/L (98-107); Creatinine, Serum 0.98 mg/dL (0.55-1.02); EST Glomerular Filtration Rate 60 mL/min (>60); Est Glom Filt Rate - Afr Amer 72 mL/min (>60); Glucose 79 mg/dL (74-106); Magnesium 2.4 mg/dL (1.6-2.6); Potassium 3.9 mmol/L (3.5-5.1); Sodium Level 143 mmol/L (136-145)
== END ==
PROVIDERS: Family Provider Internal Medicine; PCP Internal Medicine; Referring Provider Nurse Practitioner Family; Visit Provider Nurse Practitioner Family
DX: I25.10 Atherosclerotic heart disease of native coronary artery without angina pectoris (principal); I10 Essential (primary) hypertension; I47.2 Ventricular tachycardia
CPT/HCPCS: 36415; 80048; 83735

== ENCOUNTER 2019-02-09 07:47 | Day surgery (SDC) | payer MEDICARE, SELFPAY ==
[2019-01-20 09:50] VITALS: BMI 25.4
[2019-02-02 15:13] LABS: Basophil# 0.04 X10^3/uL; Eosinophil# 0.08 X10^3/uL; Eosinophils% 2.1 % (0-5); Hematocrit 39.9 % (37-47); Hemoglobin 13.1 g/dl (12.0-15.0); Lymphocyte % 36.1 % (19-41); Mean Corp Hgb Conc 32.8 g/gl (32-36); Mean Corpuscular Hgb 27.8 pg (27.0-32.0); Mean Corpuscular Volume 84.5 fL (81-99); Monocyte# 0.34 X10^3/uL; Monocyte% 8.8 % (0-10); Neutrophil # 2.02 X10^3/uL (2.7-7.7); Platelet Count 226 K/mm3 (150-450); RBC Distribution Width CV 13.4 % (11.6-14.6); RBC Distribution Width SD 41.1 fl (35.1-43.9); Red Blood Count 4.72 M/mm3 (4.2-5.4); White Blood Count 3.9 K/mm3 (4.4-11.0)
[2019-02-02 15:17] LABS: Prothrombin Time (Protime)PT. 13.2 SECONDS (11.7-14.9)
[2019-02-02 15:19] LABS: POSITIVE COUNT NO; POSITIVE DIFFERENTIAL NO; POSITIVE MORPHOLOGY NO
[2019-02-08 08:31] VITALS: BMI 25.7
--- NOTE | 2019-02-09 08:59 | PCM.HP.BLA ---
Problem List (1) Syncope Status: Resolved (2) CAD (coronary artery disease) Status: Acute (3) S/P PTCA (percutaneous transluminal coronary angioplasty) Status: Chronic (4) PVC (premature ventricular contraction) Status: Chronic (5) Dyslipidemia Status: Chronic (6) Essential hypertension Status: Chronic History and Physical Date of Admission: 02/09/19 HPI HPI History of Present Illness Details: This is a 68-year-old female that presents here today for a cardiovascular outpatient follow-up.. She was admitted to the hospital at the beginning of November for syncope. It was felt to be related to orthostatic hypotension and dehydration. Her diuretic was discontinued. She did undergo a stress test which was negative for ischemia. She does have a history of coronary artery disease with previous stenting, hypertension, hyperlipidemia, PVCs. She states six days ago she notice chest pain that she describes as squeezing that lasts for a couple of minutes. This is associated with sweating and headache. She states two days later she notices similar symptoms while walking. She states taking her blood pressure when she got home and was noted to be 106/54. She states noticing faster heart rate prior to chest squeezing. She states this associated having to take a deep breath. She this also associated with lightheadedness and dizziness at times. Pt. denies orthopnea, PND, fever, chills, blood in urine, blood in stool, or myalgia. She states feeling run down. She denies pre-syncope or syncope. Intake Vital Signs 01/20/19 Body Mass Index (BMI) 25.4 01/20/19 Height 5 ft 2 in 01/20/19 Weight: 140 lb 8 oz 01/20/19 Body Mass Index (BMI) 25.7 01/20/19 Blood Pressure 110/62 01/20/19 Pulse Rate 60 Intake Visit Reasons: CP Java Web User Interface Developer Required: No Is patient in pain?: No Allergies tetracycline Allergy (Verified 01/20/19 09:16) Unknown Medications Aspirin [Aspirin, Baby] 81 mg PO DAILY@0800 05/16/15 [History Confirmed 01/20/19] Metoprolol Tartrate [Lopressor (beta yuan)] 25 mg PO BID 05/16/15 [History Confirmed 01/20/19] Lisinopril 40 mg PO DAILY 12/07/18 [History Confirmed 01/20/19] buPROPion SR [Wellbutrin SR (150mg tablets)] 150 mg PO DAILY 12/07/18 [History Confirmed 01/20/19] rosuvastatin 20 mg tablet 20 mg PO DAILY 12/22/18 [History Confirmed 01/20/19] amlodipine 10 mg tablet 5 mg PO DAILY tab 01/20/19 [History Confirmed 01/20/19] Nurse's Note: chest pain, passing out [facility] Medical History Essential hypertension (Chronic) Atherosclerosis of coronary artery of wiyot heart without angina pectoris (Chronic) Tobacco abuse (Chronic) PVC (premature ventricular contraction) (Chronic) Dyslipidemia (Chronic) Syncope (Resolved) Hard of hearing (Chronic) Surgical History S/P PTCA (percutaneous transluminal coronary angioplasty) (Chronic) History of appendectomy (Resolved) History of bladder suspension procedure (Resolved) History of hysterectomy (Resolved) History of removal of cyst (Resolved) Family History Father Cancer bladder Sister Heart disease Pacemaker Brother Heart disease Pacemaker Brother CAD (coronary artery disease) stents Brother Cancer Social History Smoking Status: Current every day smoker alcohol intake: never substance use type: does not use caffeine: Yes Type: coffee Number of servings: 4 ROS Const Const: Positive for fatigue, headache(s) and excessive sweating; negative for weakness, body ache, fever(s) or chills ENT ENT: Positive for headache(s) and dizziness Cardio Chest Pain: Yes Palpitations: Yes Edema: None Muscle aches with walking: None Resp Respiratory: Negative for SOB with activity, SOB at rest, SOB orthopnea\SOB lying down or paroxysmal nocturnal dyspnea GI GI: Negative nausea, vomiting blood/hematemesis, bright, red blood in stools or black,tarry stools : Negative for hematuria or frequent nighttime urination/ nocturia Musc Musc: Negative for muscle aches/ myalgia Skin Skin: Negative non-healing lesions or rash Neuro Neuro: Positive for dizziness, lightheadedness and headache(s); negative for near syncope, syncope, orthostatic symptoms or weakness Endo Endo: Positive for fatigue and excessive sweating Allergy Allergy/Immunology: Negative for rash Cardiology Exam Const Appearance: cooperative, healthy appearing, comfortable and no acute distress Nutritional Appearance: average body habitus and well nourished Orientation: alert, awake and oriented x3 Head Head: normal to inspection Ears: hearing grossly normal bilaterally Nose: external nose normal Face and Sinus: face symmetric Mouth: oral mucosae normal Eyes General: appearance normal, both eyes and all related structures Eyelids: eyelids normal EOM: EOM intact bilaterally Neck Neck: normal visual inspection and no JVD Carotids: normal carotid upstroke Chest Chest inspection: normal inspection of the chest, symmetric chest movement and normal respiratory effort; negative cough Auscultation: Bilateral: Clear to Auscultation Cardio Rate: regular rate Rhythm: regular rhythm Heart sounds: S1 normal and S2 normal; negative rub, gallop or murmur GI GI: normal to inspection Neuro General: alert, awake, oriented x3 and CN's II-XI intact bilaterally Skin Skin: no rashes or lesions noted Extremities Pulses: Normal: Right Posterior Tibial Pulse, Left Posterior Tibial Pulse, Right Radial Pulse, Left Radial Pulse Lower Extremity Edema: None: Bilateral Psych Psychological: normal affect Assessment & Plan 1. Atherosclerosis of wiyot coronary artery of wiyot heart without angina pectoris I25.10 Plan Her most recent echocardiogram showed ejection fraction of 75%. Her most recent stress test was negative for ischemia. At this time, her chest pain appears atypical. If her symptoms worsen or become more frequent we will consider further invasive testing to evaluate coronary artery disease component. Orders Orders: 30 Day Event Recorder Hook-Up Today 2. PVC (premature ventricular contraction) I49.3 Plan It is unclear if this is contributing to her fast heart rate sensation. She will undergo a 30-day event monitor to evaluate further. Based on results further recommendation will be made. She was asked to continue with current beta-yuan dosage. Orders Orders: 30 Day Event Recorder Hook-Up Today 3. Syncope R55 Plan She denies any reoccurring episodes. Her blood pressure medication is being adjusted due to lower blood pressure readings. We will continue to monitor. Orders Orders: 30 Day Event Recorder Hook-Up Today 4. Essential (primary) hypertension I10 Plan With her recent symptoms she has noticed lower blood pressure readings. She was asked to decrease her amlodipine to 5 mg p.o. daily. Hopefully, this improves her symptoms. 5. Palpitations R00.2 Plan Patient does acknowledge that when she asked experiences chest pain she also notices fast heart rates. It is unclear if this is the cause of her chest pain or a result of her chest discomfort. She does have a previous history of nonsustained ventricular tachycardia. This will be reassessed during her 30-day event monitor. Based on results, further recommendation will be made. Plan Detail Additional Comments Thank you for allowing us to participate in the patient's plan of care, if you have any questions please do not hesitate to call. This note was generated using a voice recognition system and there may be incorrect words, spelling, or punctuation that were not noted upon reviewing the office note prior to saving. Coding Level of Care Code Off vis,est,level 4 Diagnoses Atherosclerosis of wiyot coronary artery of wiyot heart without angina pectoris I25.10 ??Coronary Disease-Associated Artery/Lesion type: wiyot artery PVC (premature ventricular contraction) I49.3 Syncope R55 Essential (primary) hypertension I10 Palpitations R00.2 Coding Level of Care Code Off vis,est,level 4 Diagnoses Atherosclerosis of wiyot coronary artery of wiyot heart without angina pectoris I25.10 ??Coronary Disease-Associated Artery/Lesion type: wiyot artery PVC (premature ventricular contraction) I49.3 Syncope R55 Essential (primary) hypertension I10 Palpitations R00.2 Supplemental Info Supplemental Information Echocardiogram in 2019 demonstrated: The estimated ejection fraction is 75 %. Trivial mitral valve insufficiency. Mild (1+) tricuspid valve insufficiency. Right ventricular systolic pressure estimated to be 37 mmHg. Mild pulmonary hypertension. Trivial aortic valve insufficiency. Compared to echo report dated 05/07/2015, no appreciable changes noted. MR appears to be better on this study. Stress test in 2019 demonstrated: Normal pharmacologic myocardial perfusion stress test. Preserved ejection fraction. Carotid duplex ultrasound from 12/07/2018: Interpretation Summary Minimal irregular plague at the proximal right internal carotid with <50% stenosis. <50% stenosis right external carotid Irregular calcific plague at the proximal left internal carotid with 50-69% stenosis. Irregular plague at the proximal left external carotid with <50% stenosis. Patent and antegrade vertebrals bilaterally Labs LDL Cholesterol 153 mg/dL (0-130) H 12/08/18 HDL Cholesterol 61 mg/dL (40-) 12/08/18 Triglycerides 78 mg/dL (-199) 12/08/18 VLDL Cholesterol 16 mg/dL (5-40) 12/08/18 Diagnostics Electrocardiogram 12/08/18 Echocardiogram 12/07/18 Stress Test Nuclear Medicine 12/08/18 Stress Test 12/08/18 Cardiac Catheterization 05/16/15 Chest X-Ray 12/07/18 Pulmonary Pulmonary Function Test 06/01/15 01/20/19 [id number] <Electronically signed by Tremayne QUIÑONEZ> Date Tremayne QUIÑONEZ I have re-examined the patient. There are no clinical changes since date of exam.
--- NOTE | 2019-02-09 10:19 | CL.D_ITS ---
Patient Name: MAG GREGG Study Date: 02/09/2019 Performing: Alexandre Coley MD Ht: 61.81 inches 157 cm : 1950 Wt: 141.1 lbs 64 kg Age: 68 Gender: female BSA: 1.64 PROCEDURE(S) PERFORMED [id number]/LV CLINICAL PROFILE AND INDICATIONS Indications: Suspected CAD, Cardiac Arrythmia, Syncope Heart Failure: None Stress/Imaging Date: 12/08/2018Stress Test with SPECT MPI: Negative Angina Classification Anginal Classification w/in 2 Weeks: No symptoms CAD Presentations: Other: syncope / ventricular tachycardia CONCLUSIONS Elevated Left Ventricular End Diastolic Pressure Normal LV size, wall motion,and systolic function LVEF: by LV gram 70 % [place] Multivessel CAD RCA Stent: patent Mitral Valve Insufficiency Moderate (partially catheter / PVC induced) RECOMMENDATIONS Risk factor modification Medical therapy DESCRIPTION OF PROCEDURE The patient arrived to the procedure lab. The risks and benefits of the procedure as well as a full d escription of our services here and current unavailability of surgical backup were fully explained to the patient and/or their significant other prior to the catheterization. The Timeout was completed, verifying the correct patient and procedure. The patient's procedural site was prepped and draped in the usual fashion. Local anesthetic was given subcutaneously to right groin region with Lidocaine 2%. Using a modified Seldinger technique, arterial access was obtained via the right femoral artery, a 4 Fr sheath was inserted Left Coronary Artery selective angiography was performed in multiple views us ing a 4 Fr. JL5 catheter. Right Coronary Artery selective angiography was then performed in multiple views using a 4 Fr. 3DRC catheter. Left Ventriculography was performed in HANKINS projection using a 4 Fr . Pigtail catheter. LV to AO pullback pressures were then recorded.The arterial sheath was pulled and manual compression applied until hemostasis is achieved. CORONARY ANGIOGRAPHY DOMINANCE: Right Dominant LEFT HEART ASSESSMENT Left Ventricular Ejection Fraction: by LV Gram 70 % Normal LV wall motion Elevated Left Ventricular End Diastolic Pressure LVEDP: 20 mmHg LEFT MAIN: Mild calcification, distal 25 % Stenosis LEFT ANTERIOR DESCENDING ARTERY: PROX LAD: Mild calcification, Mild luminal irregularities CIRCUMFLEX ARTERY: PROX CIRC: Mild luminal irregularities RIGHT CORONARY ARTERY: Mild luminal irregularities PROX RCA: Previously placed stent is patent with minimal luminal irregularities MID RCA: Previously placed stent is patent with minimal luminal irregularities VALVE FINDINGS: Normal Aortic Valve function Mitral Valve Insufficiency - Grade 2 (partially catheter / PVC induced) AORTIC ROOT: Angiographically normal COMPLICATIONS No Complications PROCEDURE MEDICATIONS Versed 1 mg IV Oxygen: 2 L/min via nasal cannula SUMMARY OF HEMODYNAMIC DATA Time AIR REST ECG 08:05:24 AO 166/69 (99) SA 09:17:22 LV 162/6, 26 09:24:44 LV 159/6, 20 09:24:51 LV 185/2, 31 09:26:39 LVp 173/3, 27 09:26:45 AOp 174/71 (114) 09:26:50 Signed By Alexandre Coley MD On 02/09/2019 10:18:48 Alexandre Coley MD
== END 2019-02-09 13:50 | disposition home or self-care (01) ==
LOC: CLSP 07:48
PROVIDERS: Family Provider Internal Medicine; PCP Internal Medicine; Referring Provider Internal Medicine Cardiovascular Disease; Visit Provider Internal Medicine Cardiovascular Disease
DX: I25.10 Atherosclerotic heart disease of native coronary artery without angina pectoris (principal); I34.0 Nonrheumatic mitral (valve) insufficiency; I49.3 Ventricular premature depolarization; R55 Syncope and collapse; R00.2 Palpitations; I10 Essential (primary) hypertension; E78.5 Hyperlipidemia, unspecified; H91.90 Unspecified hearing loss, unspecified ear; F17.200 Nicotine dependence, unspecified, uncomplicated; Z79.82 Long term (current) use of aspirin; Z79.899 Other long term (current) drug therapy; Z95.5 Presence of coronary angioplasty implant and graft
CPT/HCPCS: 36415; 85025; 85610; 85730; 93458; 99152; 99153; J7040; Q9967; C1769; C1894

== ENCOUNTER → 2019-08-09 14:19 | Outpatient (CLI) | payer MEDICARE, SELFPAY ==
[2019-07-06 14:10] VITALS: BMI 27.1
[2019-08-09 15:20] LABS: AST(SGOT) 15 U/L (15-37); Alanine Aminotransfer ALT/SGPT 22 U/L (13-56); Alkaline Phosphatase 71 U/L (45-117); Bilirubin, Direct 0.12 mg/dL (0.00-0.30); Globulin 3.5 g/dL (2.2-4.2); Protein, Total 7.5 g/dL (6.4-8.2); Thyroid Stim Hormone (TSH) 3.41 uIU/mL (0.358-3.74)
== END ==
PROVIDERS: Family Provider Internal Medicine; PCP Internal Medicine; Referring Provider Physician Assistant Medical; Visit Provider Physician Assistant Medical
DX: I10 Essential (primary) hypertension (principal); I47.1 Supraventricular tachycardia; I25.10 Atherosclerotic heart disease of native coronary artery without angina pectoris; Z79.899 Other long term (current) drug therapy
CPT/HCPCS: 36415; 80076; 84443

== ENCOUNTER → 2019-08-10 12:41 | Outpatient (CLI) | payer MEDICARE, SELFPAY ==
[2019-07-06 14:10] VITALS: BMI 27.1
--- NOTE | 2019-08-11 07:50 | PFT ---
INTRODUCTION: The patient is a 69-year-old female that presents for pulmonary function studies secondary to a diagnosis of smoking history. Respiratory therapy reports good patient effort. Bronchodilators were used during testing. INTERPRETATION: Forced expiration spirometry demonstrates no evidence of a large airways obstructive ventilatory defect. There was no significant response to aerosolized bronchodilators. Spirograms are of good quality and plateau normally. The respiratory flow volume loop appears normal. Body plethysmography was performed and reveals lung volumes to be within normal limits. Diffusing capacity by single breath CO is within normal limits at 98% of predicted. IMPRESSION: Normal pulmonary function studies.
== END ==
LOC: PSN 12:42
PROVIDERS: Family Provider Internal Medicine; PCP Internal Medicine; Referring Provider Physician Assistant Medical; Visit Provider Physician Assistant Medical
DX: I47.1 Supraventricular tachycardia (principal); I25.10 Atherosclerotic heart disease of native coronary artery without angina pectoris; I10 Essential (primary) hypertension; Z79.899 Other long term (current) drug therapy
CPT/HCPCS: 94060; 94726; 94729

== ENCOUNTER 2022-07-24 07:39 | Emergency (ER) | payer MEDICARE, SELFPAY ==
[2022-07-24 07:39] VITALS: BP 158/92; PULSE 55; RESP 12; TEMP 36.1; O2SAT 97
[2022-07-24 07:40] VITALS: BP 223/67; PULSE 53; RESP 16; TEMP 35.8; O2SAT 99; BMI 26.5
--- NOTE | 2022-07-24 07:56 | EX.ED.DYSGE1 ---
HPI History of Present Illness Chief Complaint: Dizziness Detail of Chief Complaint: Spinning with nausea and dry heaves Informant: patient and family Limited: other (Hard of hearing and did not bring hearing aids) Onset/Context/Timing Onset: Yesterday Context: Sudden Onset Timing: Intermittent Quality: Spinning sensation Location: When supine Current Severity: Gone (Presently complains of nausea and upright position) Maximum Severity: Severe (Supine position) Worsened by: Change in position of head Relieved by: Remaining still Associated Symptoms Associated Symptoms: Nausea with dry heaves Narrative Narrative: Patient is a 72-year-old woman with history of coronary disease, paroxysmal supraventricular tachycardia, dyslipidemia and essential hypertension. Patient states she did not take her blood pressure meds because she vomited. She denies headache. She denies double vision, blurred vision loss of vision. She is hard of hearing. She states she has chronic ringing in her ears. She denies neck pain. She denies paresthesia, anesthesia medics. She denies cardiac respiratory symptoms. Only GI symptom is nausea with dry heaves with change in position. She has no other complaints. Prior similar symptoms: No Recent Illness/Hospitalization: No PFSH PFS Medical History (Updated 07/24/22 @ 09:[address] Bruce Guerrero MD) Arthritis Atherosclerosis of coronary artery of [place] without angina pectoris Dyslipidemia Environmental allergies Essential hypertension Hard of hearing Hay fever Premature atrial contraction PVC (premature ventricular contraction) SVT (supraventricular tachycardia) Syncope Tobacco abuse Vertigo Home Medications aspirin 81 mg chewable tablet 81 mg PO DAILY@0800 [facility] 05/16/15 [History Last Taken 02/09/19] lisinopril 40 mg tablet 40 mg PO DAILY bp 12/07/18 [History Last Taken 02/09/19] rosuvastatin 20 mg tablet 20 mg PO DAILY 12/22/18 [History Last Taken Unknown] amlodipine 5 mg tablet 5 mg PO DAILY #90 tabs 07/06/19 [Rx Last Taken Unknown] amiodarone 200 mg tablet 200 mg PO DAILY #90 tabs 10/27/19 [Rx Last Taken Unknown] metoprolol succinate 100 mg tablet,extended release 24 hr 100 mg PO DAILY 07/24/22 [History Last Taken Unknown] Allergy/AdvReac Type Severity Reaction Status Date / Time tetracycline Allergy Unknown Verified 07/24/22 07:41 Family History Father Cancer bladder Sister Heart disease Pacemaker Brother Heart disease Pacemaker Brother CAD (coronary artery disease) stents Brother Cancer Surgical History History of appendectomy History of bladder suspension procedure History of hysterectomy History of loop recorder History of removal of cyst S/P PTCA (percutaneous transluminal coronary angioplasty) Social History (Updated 07/24/22 @ 07:[address] Bruce Guerrero MD) household members: family Smoking Status: Current every day smoker tobacco type: cigarettes alcohol intake: never substance use type: does not use caffeine: Yes Type: coffee Number of servings: 4 ROS ROS ED Constitutional Constitutional ED: Denies chills, fever(s), subjective, sweats or weight loss Eyes Eyes: Denies blurry vision, change in vision or diplopia ENT ENT ED: Denies ear pain, rhinorrhea or sore throat Cardiovascular Cardiovascular: Denies chest pain or palpitations Respiratory/Chest Respiratory/Chest: Denies cough, dyspnea or dyspnea on exertion Gastrointestinal Gastrointestinal: Reports nausea and vomiting; Denies abdominal pain or diarrhea Genitourinary Genitourinary ED: Denies dysuria or urinary frequency Musculoskeletal Musculoskeletal: Denies arthralgias, back pain or myalgias Integumentary Denies Abrasions or rash Neurologic Neurologic: Denies headache(s), paresthesias or weakness Endocrine Endocrinology: Denies polydipsia or polyuria Hematologic/Lymphatic Hematologic/Lymphatic: Reports none EXAM Physical Exam Const Vital Signs: 07/24/22 07:40 07/24/22 07:39 07/24/22 08:00 Temperature 96.5 F L 96.9 F L Temperature Source Temporal Temporal Pulse Rate 53 L 55 L Respiratory Rate 16 12 Respiratory Effort Normal Non-Labored Respiratory Pattern Normal Blood Pressure 223/67 H 158/92 H Blood Pressure Mean 119 114 Pulse Ox 99 97 Oxygen Delivery Method Room Air Room Air Positive well nourished and well developed Constitutional Narrative: Patient is very hard of hearing. She has difficulty reading lips because of my goatee. She is able to read the nurses lips who helped obtain history and physical. General Appearance ED: well developed and NAD; Negative for cyanotic, diaphoretic or pallor HEENT Reports moist mucous membranes HEENT Narrative: Head is atraumatic normocephalic. Ears normal. TMs normal. Uvula midline. No deviation tongue or protrusion. Eyes PERRL and EOMs intact bilaterally Eyes Narrative: There is no central gaze nystagmus. General Eye ED: Negative for pale conjunctiva or scleral icterus Neck no lymphadenopathy, supple and no JVD Neck Narrative: Trachea is midline. There is no carotid bruit over the right or left carotid noted. Chest Wall inspection of chest normal and palpation of chest normal Resp normal respiratory effort and clear to auscultation bilaterally Cardio regular rate, regular rhythm, S1 normal heart sound, S2 normal heart sound and no murmurs GI normal to inspection, nondistended, normoactive bowel sounds, non-tender, non-distended and no masses; Negative for hepatosplenomegaly Back/Spine no CVA tenderness Extremity normal to inspection General Extremety ED: Negative for edema or tenderness General Extremity: Negative for edema Neuro oriented x3, CN's II-XII intact bilaterally and no sensory deficits noted Neuro Narrative: There is no dysmetria. Romberg with eyes open and close negative. The eye askew test was negative. The hint test was negative. Keo-Hallpike test was positive worse with head to the right. DTR symmetric with no Babinski sign or clonus. Sensorium / Orientation: alert Motor Exam: strength 5/5 throughout Psych mental status grossly normal Skin no rashes or lesions noted and no wounds General Skin Exam: Negative for jaundice or pallor MDM MDM MDM Narrative Medical decision making narrative: With a nonfocal neurologic exam history of positional vertigo and a positive [place]-Hallpike maneuver will medicate patient with Zofran prior to performing Onelia maneuver. Blood pressure is noted to be elevated. We will have nurse monitor and administer meds if needed. Treatment and Re-Evaluation Narrative: Nurse ambulated the patient around the emergency department. She had no recurrence of her vertigo. She was discharged home with appropriate home-going instructions for paroxysmal benign positional vertigo. Procedures Other Procedures Procedure(s): Modified Onelia maneuver was performed. Patient states her symptoms resolved. We will have nurse ambulate. Total time to perform maneuver was 8 minutes. Discharge Plan Triage Chief Complaint: Dizziness ED Provider: Bruce Guerrero Dx/Rx/DC Orders Clinical Impression: Benign paroxysmal positional vertigo Instructions: ED BPV Vertigo Prescriptions: No Action rosuvastatin 20 mg tablet 20 mg PO DAILY aspirin 81 MG tablet,chewable 81 mg PO DAILY@0800 lisinopril 40 MG tablet 40 mg PO DAILY Label Comments: Take 1 tablet by mouth once daily. For high blood pressure. metoprolol succinate 100 mg tablet extended release 24 hr 100 mg PO DAILY Label Comments: TAKE 1 TABLET BY MOUTH once DAILY amlodipine 5 mg tablet 5 mg PO DAILY Qty: 90 3RF amiodarone 200 mg tablet 200 mg PO DAILY Qty: 90 3RF Primary Care Provider: Josiah Carlos Referrals: Josiah Carlos MD [Primary Care Provider] - As Needed Disposition Disposition: Home, Self Care
[2022-07-24] MEDS: Ondansetron ODT 4 MG Tablet PO (08:07)
[2022-07-24 09:17] VITALS: BP 153/74; PULSE 56; RESP 16; TEMP 36.6; O2SAT 98
[2022-07-24 09:39] VITALS: BP 158/68; PULSE 75; RESP 18; TEMP 36.8; O2SAT 99
== END 2022-07-24 09:46 | disposition home or self-care (01) ==
PROVIDERS: Emergency Provider Emergency Medicine; PCP Internal Medicine; Visit Provider Emergency Medicine
DX: H81.10 Benign paroxysmal vertigo, unspecified ear (principal); I10 Essential (primary) hypertension; I25.10 Atherosclerotic heart disease of native coronary artery without angina pectoris; E78.5 Hyperlipidemia, unspecified; H91.90 Unspecified hearing loss, unspecified ear; F17.210 Nicotine dependence, cigarettes, uncomplicated
CPT/HCPCS: 99283